=== PATIENT | male | born 1975 | race Caucasian/White ===

== ENCOUNTER 2020-04-15 14:00 | Observation (INO) | payer BC ==
[~2020-04-15] VITALS: Ht 192 cm; Wt 192.2 kg
[~2020-04-15 14:00] MED LIST: HCT25T PO; HYDR-3583 PO; METF-380 PO; TRIA1CAP PO
--- NOTE | 2020-04-15 15:19 | Pulmonary Consultation ---
History of Present Illness History of Present Illness Date Seen by Provider: Apr 15, 2020 Date of Admission History of Present Illness 44yo directly admitted from Dr. Booth's office secondary to worsening SOB. COVID testing is pending. Allergies and Home Medications Allergies Coded Allergies: No Known Drug Allergies (Verified , 05/14/08) Home Medications Albuterol Sulfate 1 Puff Puff, 2 PUFF IH Q4H PRN for SHORTNESS OF BREATH, (Reported) 1 PUFF = 90 MCG Amlodipine Besylate 5 Mg Tablet, 5 MG PO DAILY, (Reported) Desvenlafaxine Succinate 100 Mg Tab.er.24h, 100 MG PO DAILY, (Reported) Diazepam 5 Mg Tablet, 5 MG PO DAILY PRN for ANXIETY, (Reported) Doxylamine Succinate 25 Mg Tablet, 25 MG PO HS, (Reported) Famotidine 10 Mg Tablet, 10 MG PO DAILY PRN for HEARTBURN, (Reported) Lactobacillus Combination No.4 1 Each Capsule, 1 EACH PO DAILY, (Reported) Metoprolol Succinate 25 Mg Tab.er.24h, 25 MG PO DAILY, (Reported) Multivit-Min/Folic/Vit K/Lycop 1 Each Tablet, 1 EACH PO DAILY, (Reported) Olmesartan Medoxomil 20 Mg Tablet, 20 MG PO DAILY, (Reported) Propranolol HCl 10 Mg Tablet, 10 MG PO DAILY PRN for ANXIETY, (Reported) Simethicone 125 Mg Capsule, 125 MG PO DAILY, (Reported) Triamterene/Hydrochlorothiazid 1 Each Capsule, 1 EACH PO DAILY, (Reported) Past Gehrhia-Rbqeot-Mmifoy Hx Patient Social History Smoking Status: Light Tobacco Smoker Have you traveled recently?: No Substance type: Marijuana Alcohol Use?: Yes Past Medical History Reproductive Disorders: No Sepsis Event Evaluation Height, Weight, BMI Height: '" Weight: lbs. oz. kg; 47.74 BMI Method: Exam Exam Height & Weight Height: '" Weight: lbs. oz. kg; 47.74 BMI Method: Assessment/Plan Assessment/Plan SOB -ABG -CXR -Labs pending COVID pending -Check Influenza Acute dehydration with metabolic lactic acidosis -IVF Acute renal failure -IVF YAN WEN DO Apr 15, 2020 15:19
[2020-04-15 15:24] LABS: BASOPHILS % (AUTO) 1 % (0-10); EOSINOPHILS % (AUTO) 1 % (0-10); HEMATOCRIT 39 % (40-54); LYMPHOCYTES # (AUTO) 1.1 10^3/uL (1.0-4.0); LYMPHOCYTES % (AUTO) 29 % (12-44); MEAN CORPUSCULAR HEMOGLOBIN 37 pg (25-34); MEAN CORPUSCULAR HGB CONC 36 g/dL (32-36); MEAN CORPUSCULAR VOLUME 103 fL (80-99); MEAN PLATELET VOLUME 9.5 fL (9.0-12.2); MONOCYTES # (AUTO) 0.4 10^3/uL (0.0-1.0); MONOCYTES % (AUTO) 11 % (0-12); NEUTROPHILS # (AUTO) 2.1 10^3/uL (1.8-7.8); NEUTROPHILS % (AUTO) 58 % (42-75); PLATELET COUNT 128 10^3/uL (130-400); WHITE BLOOD COUNT 3.7 10^3/uL (4.3-11.0)
--- NOTE | 2020-04-15 15:24 | Diagnostic Imaging Report ---
INDICATION: Dyspnea. Frontal chest obtained at 03:18 p.m. Heart and mediastinal silhouette are normal in appearance. The lungs are clear. There is no pneumothorax or pleural fluid. IMPRESSION: Negative chest. Dictated by: Dictated on workstation # [id number]
[2020-04-15 15:34] LABS: FIBRIN DEGRADATION PRODUCTS 0.63 UG/ML (0.00-0.49); PROTHROMBIN TIME PATIENT 13.6 SEC (12.2-14.7)
[2020-04-15 15:42] LABS: ALBUMIN 4.2 GM/DL (3.2-4.5); CHLORIDE 98 MMOL/L (98-107); SODIUM 136 MMOL/L (135-145)
[2020-04-15 15:43] LABS: CALCIUM 8.3 MG/DL (8.5-10.1)
[2020-04-15 15:44] LABS: GLUCOSE 97 MG/DL (70-105)
[2020-04-15 15:45] LABS: TOTAL PROTEIN 7.8 GM/DL (6.4-8.2)
[2020-04-15] MEDS ORDERED: AZITHROMYCIN INJECTION 500 MG in NS (IVPB) 250 ML IV ONE (15:45)
[2020-04-15] MEDS ORDERED: cefTRIAXone FOR IV USE 1,000 MG in WATER (STERILE) FOR INJECTION 10 ML IV SCH (15:45)
[2020-04-15 15:46] LABS: BILIRUBIN,TOTAL 0.7 MG/DL (0.1-1.0); CARBON DIOXIDE 22 MMOL/L (21-32)
[2020-04-15 15:48] LABS: ALKALINE PHOSPHATASE 52 U/L (40-136); CREATININE SERUM 1.58 MG/DL (0.60-1.30); GFR ESTIMATED 48
[2020-04-15 15:49] LABS: BUN/CREATININE RATIO 16
[2020-04-15 15:51] LABS: ALANINE AMINOTRANSFERASE 85 U/L (0-55)
[2020-04-15 15:59] LABS: ABG BASE EXCESS -2.8 MMOL/L (-2.5-2.5); ABG OXYGEN SATURATION 99 % (94-100); ABG PCO2 29 MMHG (35-45); ABG PH 7.47 (7.37-7.43); ABG PO2 124 MMHG (79-93); ABG TCO2 21.3 MMOL/L (21.0-31.0)
[2020-04-15] MEDS ORDERED: LACTATED RINGERS 1,000 ML IV SCH ×3 (16:00→16:15)
[2020-04-15 16:03] LABS: ALLENS TEST YES-POS; INSPIRED O2 RA; VENTILATOR NO
[2020-04-15] MEDS ORDERED: DIAZ5TAB49 PO (16:05)
[2020-04-15] MEDS ORDERED: MTP25TSR PO (16:05)
[2020-04-15] MEDS ORDERED: PROP10TA8 PO (16:05)
[2020-04-15] MEDS ORDERED: FAMO10TA43 PO (16:05)
[2020-04-15] MEDS ORDERED: SIME125C PO (16:05)
[2020-04-15] MEDS ORDERED: OLME20TA24 PO (16:05)
[2020-04-15] MEDS ORDERED: TRIA1CAP4 PO (16:05)
[2020-04-15] MEDS ORDERED: DOXY25TA35 PO (16:05)
[2020-04-15] MEDS ORDERED: DESV100T16 PO (16:05)
[2020-04-15] MEDS ORDERED: AMLO-250 PO (16:05)
[2020-04-15] MEDS ORDERED: RT-ALBUINH IH (16:05)
[2020-04-15] MEDS ORDERED: MULT-1102 PO (16:05)
--- NOTE | 2020-04-15 16:07 | NUR ---
I SPOKE WITH THE PATIENT ON THE ROOM PHONE AND WENT THROUGH THE EXTERNAL MED HISTORY TO COMPLETE THIS MED REC. OTC: PEPCID GAS X UNISOM SLEEP AID MEN'S DAILY VITAMIN PROBIOTIC
[2020-04-15] MEDS ORDERED: LACT1CAP74 PO (16:09)
[2020-04-15] MEDS ORDERED: hydrALAZINE (APESOLINE) 20 MG/ML VIAL IV SCH (16:30)
[2020-04-15 16:40] LABS: MAGNESIUM 1.6 MG/DL (1.6-2.4)
[2020-04-15] MEDS: ENOXAPARIN 40 MG/0.4 ML (LOVENOX) SYR SC SCH (16:44)
[2020-04-15 16:51] LABS: BILIRUBIN,URINE NEGATIVE (NEGATIVE); CLARITY,URINE CLEAR; COLOR,URINE YELLOW; GLUCOSE, URINE (UA) NEGATIVE (NEGATIVE); KETONES,URINE NEGATIVE (NEGATIVE); LEUKOCYTE ESTERASE ,URINE NEGATIVE (NEGATIVE); NITRITE,URINE NEGATIVE (NEGATIVE); PROTEIN,URINE NEGATIVE (NEGATIVE)
[2020-04-15 16:58] LABS: BACTERIA,URINE NEGATIVE /HPF; WBC,URINE 0-2 /HPF
[2020-04-15] MEDS ORDERED: hydrALAZINE (APESOLINE) 20 MG/ML VIAL IV PRN (17:00)
[2020-04-15 17:08] LABS: BENZODIAZEPINES SCREEN URINE POSITIVE (NEGATIVE)
[2020-04-15 17:09] LABS: AMPHETAMINE SCREEN, URINE NEGATIVE (NEGATIVE); BARBITURATE SCREEN URINE NEGATIVE (NEGATIVE); CANNABINOID SCREEN, URINE POSITIVE (NEGATIVE); COCAINE SCREEN URINE NEGATIVE (NEGATIVE); METHADONE STAT NEGATIVE (NEGATIVE); METHAMPHETAMINE SCREEN URINE S NEGATIVE (NEGATIVE); OPIATE SCREEN URINE NEGATIVE (NEGATIVE); OXYCODONE STAT NEGATIVE (NEGATIVE); PROPOXYPHENE STAT NEGATIVE (NEGATIVE); TRICYCLIC ANTIDEPRESSANTS SCRE NEGATIVE (NEGATIVE)
[2020-04-15] MEDS ORDERED: HYDROcodone/APAP 5 MG/325 MG (LORTAB) TAB PO PRN (20:45)
[2020-04-15] MEDS ORDERED: MELATONIN 3 MG TABLET PO PRN (20:45)
[2020-04-15] MEDS ORDERED: RT-ALBUTEROL SULF 2.5 MG/3 ML PRE-MIX VIAL IH PRN (20:45)
[2020-04-15] MEDS ORDERED: ALPRAZolam 0.25 MG (XANAX) TAB PO PRN (20:45)
[2020-04-15] MEDS ORDERED: DOCUSATE SODIUM 100 MG (COLACE) CAP PO PRN (20:45)
[2020-04-15] MEDS ORDERED: ONDANSETRON 4 MG/2 ML (SDV) Z0FRAN IVP PRN (20:45)
[2020-04-15] MEDS ORDERED: DIAZEPAM 5 MG (VALIUM) TABLET PO PRN (20:45)
[2020-04-15] MEDS ORDERED: CALCIUM CARBONATE 500 MG (TUMS) TAB.CHEW PO PRN (20:45)
[2020-04-15] MEDS ORDERED: diphenhydrAMINE 25 MG TAB (BENADRYL) PO PRN (20:45)
[2020-04-15] MEDS ORDERED: ACETAMINOPHEN 500 MG TAB (TYLENOL) PO PRN (20:45)
[2020-04-15] MEDS ORDERED: LOPERAMIDE 2 MG (IMODIUM) TABLET PO PRN (20:45)
[2020-04-15] MEDS ORDERED: meTOprolol TARTRATE 25 MG (LOPRESSOR) TABLET PO SCH (21:00)
[2020-04-15] MEDS ORDERED: DOXYLAMINE SUCCINATE 25 MG PO SCH (21:00)
[2020-04-15] MEDS: SENNA W/DOCUSATE (SENOKOT S) TABLET PO SCH (21:42)
[2020-04-15 21:56] LABS: HEPATITIS C ANTIBODY C Non-Reactive (Non-Reactive)
[2020-04-15] MEDS ORDERED: PROPRANOLOL 20 MG (INDERAL) TABLET PO PRN (22:00)
[2020-04-15] MEDS ORDERED: FAMOTIDINE 20 MG (PEPCID) TABLET PO PRN (22:00)
[2020-04-15] MEDS: LACTATED RINGERS 1,000 ML IV SCH ×2 (22:46→22:47)
--- NOTE | 2020-04-15 23:06 | NUR ---
clarification order with Dr Booth on benzo's per pharmacy doesnt feel he needs both diazepam and alprazolam. per Dr Booth dc diazepam. TORBV
[2020-04-15] MEDS: guaiFENesin/DM (ROBITUSSIN DM) 10 ML UDC PO PRN (23:51)
[2020-04-16] MEDS: ENOXAPARIN 40 MG/0.4 ML (LOVENOX) SYR SC SCH (04:21)
[2020-04-16 04:23] LABS: BASOPHILS % (AUTO) 1 % (0-10); EOSINOPHILS % (AUTO) 2 % (0-10); HEMATOCRIT 37 % (40-54); LYMPHOCYTES % (AUTO) 43 % (12-44); MEAN CORPUSCULAR HEMOGLOBIN 36 pg (25-34); MEAN CORPUSCULAR HGB CONC 35 g/dL (32-36); MEAN CORPUSCULAR VOLUME 103 fL (80-99); MEAN PLATELET VOLUME 9.9 fL (9.0-12.2); MONOCYTES # (AUTO) 0.2 10^3/uL (0.0-1.0); MONOCYTES % (AUTO) 8 % (0-12); NEUTROPHILS # (AUTO) 1.1 10^3/uL (1.8-7.8); NEUTROPHILS % (AUTO) 45 % (42-75); PLATELET COUNT 98 10^3/uL (130-400); WHITE BLOOD COUNT 2.3 10^3/uL (4.3-11.0)
[2020-04-16 04:33] LABS: ALBUMIN 3.9 GM/DL (3.2-4.5); POTASSIUM 3.8 MMOL/L (3.6-5.0)
[2020-04-16 04:34] LABS: CALCIUM 8.2 MG/DL (8.5-10.1)
[2020-04-16 04:35] LABS: TOTAL PROTEIN 7.3 GM/DL (6.4-8.2)
[2020-04-16 04:37] LABS: BILIRUBIN,TOTAL 0.8 MG/DL (0.1-1.0)
[2020-04-16 04:39] LABS: CREATININE SERUM 1.34 MG/DL (0.60-1.30)
[2020-04-16] MEDS: LACTATED RINGERS 1,000 ML IV SCH (05:11)
[2020-04-16] MEDS: guaiFENesin/DM (ROBITUSSIN DM) 10 ML UDC PO PRN (05:52)
[2020-04-16] MEDS: RT-ALBUTEROL/IPRATROPIUM 3 ML (DUONEB) VIAL INH SCH ×3 (06:32→13:46)
[2020-04-16] MEDS ORDERED: VENlafaxine XR 75 MG (EFFEXOR XR) CAP PO SCH (07:00)
[2020-04-16] MEDS ORDERED: MULTIVIT W/MINERALS TAB (THERAGRAN M) PO SCH (07:00)
[2020-04-16] MEDS ORDERED: ADVAIR HFA 115/21 MCG INHALER 8 GM IH SCH (08:00)
[2020-04-16] MEDS ORDERED: LACTOBACILLUS ACIDOPHILUS (PROBIOTIC) CAPSULE PO SCH (09:00)
[2020-04-16] MEDS ORDERED: AZITHROMYCIN INJECTION 250 MG in NS (IVPB) 250 ML IV SCH (09:00)
[2020-04-16] MEDS ORDERED: amLODIPine 5 MG (NORVASC) TAB PO SCH ×2 (09:00)
[2020-04-16] MEDS ORDERED: meTOprolol TARTRATE 25 MG (LOPRESSOR) TABLET PO SCH (09:00)
[2020-04-16] MEDS ORDERED: SIMETHICONE 80 MG (MYLICON) CHEW PO SCH (09:00)
--- NOTE | 2020-04-16 09:03 | NUR ---
Received dietary consult for MST score. Given current PO intake, pt is not at risk for malnutrition at this time. Melvin Elise, MS RD LD
--- NOTE | 2020-04-16 09:08 | Consultation-Cardiology ---
HPI-Cardiology Cardiology Consultation Date of Consultation 04/16/20 Date of Admission Time Seen by Provider: 10:38 Indication: shortness of breath HPI 44 years old gentleman with morbid obesity, admitted directly from Dr. Booth's office for generalized weakness and increasing shortness of breath. Patient has lost over 100 pound in the past but recently has gained about 60 pounds. He has been having increasing dyspnea with minimal exertion, generalized fatigue and loss of energy. Denied any chest pain. No palpitation. No syncope Home Medications & Allergies Allergies: Coded Allergies: No Known Drug Allergies (Verified , 05/14/08) Home Medication List Reviewed: Yes JLC-Udfydw-Ndefph Hx Patient Social History Smoking Status: Light Tobacco Smoker Have you traveled recently?: No Alcohol Use?: Yes Substance type: Marijuana Past Medical History discussed below Review of Systems-General Review of Systems Constitutional: no symptoms reported, see HPI, malaise, weakness EENTM: see HPI, no symptoms reported Respiratory: see HPI, dyspnea on exertion, orthopnea, short of breath Cardiovascular: see HPI Gastrointestinal: no symptoms reported, see HPI Genitourinary: no symptoms reported, see HPI Musculoskeletal: no symptoms reported, see HPI Skin: no symptoms reported, see HPI Psychiatric/Neurological: No Symptoms Reported, See HPI Reviewed Test Results Reviewed Test Results Lab Laboratory Tests Test 04/15/20 15:00 04/15/20 15:15 04/15/20 15:35 04/15/20 16:15 Range/Units White Blood Count 3.7 L 4.3-11.0 10^3/uL Red Blood Count 3.84 L 4.30-5.52 10^6/uL Hemoglobin 14.0 13.3-17.7 g/dL Hematocrit 39 L 40-54 % Mean Corpuscular Volume 103 H 80-99 fL Mean Corpuscular Hemoglobin 37 H 25-34 pg Mean Corpuscular Hemoglobin Concent 36 32-36 g/dL Red Cell Distribution Width 14.6 H 10.0-14.5 % Platelet Count 128 L 130-400 10^3/uL Mean Platelet Volume 9.5 9.0-12.2 fL Immature Granulocyte % (Auto) 1 % Neutrophils (%) (Auto) 58 42-75 % Lymphocytes (%) (Auto) 29 12-44 % Monocytes (%) (Auto) 11 0-12 % Eosinophils (%) (Auto) 1 0-10 % Basophils (%) (Auto) 1 0-10 % Neutrophils # (Auto) 2.1 1.8-7.8 10^3/uL Lymphocytes # (Auto) 1.1 1.0-4.0 10^3/uL Monocytes # (Auto) 0.4 0.0-1.0 10^3/uL Eosinophils # (Auto) 0.0 0.0-0.3 10^3/uL Basophils # (Auto) 0.0 0.0-0.1 10^3/uL Immature Granulocyte # (Auto) 0.0 0.0-0.1 10^3/uL Prothrombin Time 13.6 12.2-14.7 SEC INR Comment 1.0 0.8-1.4 Activated Partial Thromboplast Time 26 24-35 SEC D-Dimer 0.63 H 0.00-0.49 UG/ML Sodium Level 136 135-145 MMOL/L Potassium Level 4.0 3.6-5.0 MMOL/L Chloride Level 98 98-107 MMOL/L Carbon Dioxide Level 22 21-32 MMOL/L Anion Gap 16 H 5-14 MMOL/L Blood Urea Nitrogen 25 H 7-18 MG/DL Creatinine 1.58 H 0.60-1.30 MG/DL Estimat Glomerular Filtration Rate 48 BUN/Creatinine Ratio 16 Glucose Level 97 70-105 MG/DL Calcium Level 8.3 L 8.5-10.1 MG/DL Corrected Calcium 8.1 L 8.5-10.1 MG/DL Phosphorus Level 3.0 2.3-4.7 MG/DL Magnesium Level 1.6 1.6-2.4 MG/DL Total Bilirubin 0.7 0.1-1.0 MG/DL Aspartate Amino Transf (AST/SGOT) 111 H 5-34 U/L Alanine Aminotransferase (ALT/SGPT) 85 H 0-55 U/L Alkaline Phosphatase 52 40-136 U/L Troponin I < 0.028 <0.028 NG/ML B-Type Natriuretic Peptide < 10.0 <100.0 PG/ML Total Protein 7.8 6.4-8.2 GM/DL Albumin 4.2 3.2-4.5 GM/DL Procalcitonin 0.06 <0.10 NG/ML Coronavirus (COVID-19)(PCR) Negative Negative Coronavirus 2018 ([facility]) Negative Negative Blood Gas Puncture Site R RAD Blood Gas Patient Temperature 37.0 Arterial Blood pH 7.47 H 7.37-7.43 Arterial Blood Partial Pressure CO2 29 L 35-45 MMHG Arterial Blood Partial Pressure O2 124 H 79-93 MMHG Arterial Blood HCO3 20 L 23-27 MMOL/L Arterial Blood Total CO2 21.3 21.0-31.0 MMOL/L Arterial Blood Oxygen Saturation 99 94-100 % Arterial Blood Base Excess -2.8 L -2.5-2.5 MMOL/L Facundo Test YES-POS Blood Gas Ventilator Setting NO Blood Gas Inspired Oxygen RA Lactic Acid Level 2.72 *H 0.50-2.00 MMOL/L Urine Color YELLOW Urine Clarity CLEAR Urine pH 5.0 5-9 Urine Specific [place] >=1.030 1.016-1.022 Urine Protein NEGATIVE NEGATIVE Urine Glucose (UA) NEGATIVE NEGATIVE Urine Ketones NEGATIVE NEGATIVE Urine Nitrite NEGATIVE NEGATIVE Urine Bilirubin NEGATIVE NEGATIVE Urine Urobilinogen 0.2 < = 1.0 MG/DL Urine Leukocyte Esterase NEGATIVE NEGATIVE Urine RBC (Auto) NEGATIVE NEGATIVE Urine RBC NONE /HPF Urine WBC 0-2 /HPF Urine Squamous Epithelial Cells NONE /HPF Urine Crystals NONE /LPF Urine Bacteria NEGATIVE /HPF Urine Casts NONE /LPF Urine Mucus NEGATIVE /LPF Urine Culture Indicated NO Urine Opiates Screen NEGATIVE NEGATIVE Urine Oxycodone Screen NEGATIVE NEGATIVE Urine Methadone Screen NEGATIVE NEGATIVE Urine Propoxyphene Screen NEGATIVE NEGATIVE Urine Barbiturates Screen NEGATIVE NEGATIVE Ur Tricyclic Antidepressants Screen NEGATIVE NEGATIVE Urine Phencyclidine Screen NEGATIVE NEGATIVE Urine Amphetamines Screen NEGATIVE NEGATIVE Urine Methamphetamines Screen NEGATIVE NEGATIVE Urine Benzodiazepines Screen POSITIVE H NEGATIVE Urine Cocaine Screen NEGATIVE NEGATIVE Urine Cannabinoids Screen POSITIVE H NEGATIVE Test 04/15/20 16:16 04/15/20 21:25 04/16/20 04:07 04/16/20 04:57 Range/Units Hepatitis A IgM Antibody Non-Reactive Non-Reactive Hepatitis B Surface Antigen Non-Reactive Non-Reactive Hepatitis B Core IgM Antibody Non-Reactive Non-Reactive Hepatitis C Antibody Non-Reactive Non-Reactive Lactic Acid Level 1.80 0.50-2.00 MMOL/L White Blood Count 2.3 L 4.3-11.0 10^3/uL Red Blood Count 3.59 L 4.30-5.52 10^6/uL Hemoglobin 13.0 L 13.3-17.7 g/dL Hematocrit 37 L 40-54 % Mean Corpuscular Volume 103 H 80-99 fL Mean Corpuscular Hemoglobin 36 H 25-34 pg Mean Corpuscular Hemoglobin Concent 35 32-36 g/dL Red Cell Distribution Width 14.6 H 10.0-14.5 % Platelet Count 98 L 130-400 10^3/uL Mean Platelet Volume 9.9 9.0-12.2 fL Immature Granulocyte % (Auto) 1 % Neutrophils (%) (Auto) 45 42-75 % Lymphocytes (%) (Auto) 43 12-44 % Monocytes (%) (Auto) 8 0-12 % Eosinophils (%) (Auto) 2 0-10 % Basophils (%) (Auto) 1 0-10 % Neutrophils # (Auto) 1.1 L 1.8-7.8 10^3/uL Lymphocytes # (Auto) 1.0 1.0-4.0 10^3/uL Monocytes # (Auto) 0.2 0.0-1.0 10^3/uL Eosinophils # (Auto) 0.0 0.0-0.3 10^3/uL Basophils # (Auto) 0.0 0.0-0.1 10^3/uL Immature Granulocyte # (Auto) 0.0 0.0-0.1 10^3/uL Sodium Level 133 L 135-145 MMOL/L Potassium Level 3.8 3.6-5.0 MMOL/L Chloride Level 96 L 98-107 MMOL/L Carbon Dioxide Level 23 21-32 MMOL/L Anion Gap 14 5-14 MMOL/L Blood Urea Nitrogen 20 H 7-18 MG/DL Creatinine 1.34 H 0.60-1.30 MG/DL Estimat Glomerular Filtration Rate 58 BUN/Creatinine Ratio 15 Glucose Level 96 70-105 MG/DL Calcium Level 8.2 L 8.5-10.1 MG/DL Corrected Calcium 8.3 L 8.5-10.1 MG/DL Total Bilirubin 0.8 0.1-1.0 MG/DL Aspartate Amino Transf (AST/SGOT) 104 H 5-34 U/L Alanine Aminotransferase (ALT/SGPT) 76 H 0-55 U/L Alkaline Phosphatase 50 40-136 U/L Total Protein 7.3 6.4-8.2 GM/DL Albumin 3.9 3.2-4.5 GM/DL Test 04/16/20 05:58 Range/Units Ammonia 28 11-32 UMOL/L Physical Exam Physical Exam Vital Signs Vital Signs - First Documented 04/15/20 04/15/20 04/15/20 15:01 15:27 16:00 Temp 37.0 Pulse 124 Resp 13 B/P (MAP) 145/109 (121) Pulse Ox 97 O2 Delivery Room Air Capillary Refill : Height, Weight, BMI Height: '" Weight: lbs. oz. kg; 47.74 BMI Method: General Appearance: No Apparent Distress, WD/WN Eyes: Bilateral Eye Normal Inspection, Bilateral Eye PERRL, Bilateral Eye EOMI HEENT: PERRL/EOMI, TMs Normal, Normal ENT Inspection, Pharynx Normal, Moist Mucous Membranes Neck: Full Range of Motion, Normal Inspection, Non Tender, Supple, Carotid Bruit Respiratory: Chest Non Tender, Normal Breath Sounds, No Accessory Muscle Use, No Respiratory Distress Cardiovascular: Regular Rate, Rhythm, No Edema, No Gallop, No JVD, No Murmur, Normal Peripheral Pulses Gastrointestinal: Normal Bowel Sounds, No Organomegaly, No Pulsatile Mass, Non Tender, Soft Back: Normal Inspection, No CVA Tenderness, No Vertebral Tenderness Extremity: Normal Capillary Refill, Normal Inspection, Normal Range of Motion, Non Tender, No Calf Tenderness, No Pedal Edema Neurologic/Psychiatric: Alert, Oriented x3, No Motor/Sensory Deficits, Normal Mood/Affect Skin: Normal Color, Warm/Dry Lymphatic: No Adenopathy A/P-Cardiology Admission Diagnosis Shortness of breath Acute renal failure Elevated liver enzymes Morbid obesity Assessment/Plan shortness of breath, worsening recently, probably due to morbid obesity with si gnificant weight gain over 60 pounds recently. We had a long discussion about starting exercise program and weight loss. Echocardiogram did not show any acute abnormality. Recommend evaluating stress test which can be done as an outpatient. Morbid obesity, BMI 52. Discussed weight loss and exercise. Dehydration with acute renal failure, received IV fluid, monitor renal function Elevated liver enzymes, probably fatty infiltrate. Recommending diet, I will evaluate lipid profile. GENNA CAIN MD Apr 16, 2020 09:08
[2020-04-16] MEDS: SENNA W/DOCUSATE (SENOKOT S) TABLET PO SCH (09:19)
--- NOTE | 2020-04-16 09:34 | History & Physical ---
History of Present Illness HPI/Chief Complaint CC: Dyspnea HPI: This is a 44yoWM clinic patient of mine with h/o HTN and obesity s/p gastric bypass who presented to the [facility] at [facility] as a direct admit due to worsened dyspnea and overall declined status. Patient was admitted placed on IVF and abx initiated for empiric treatment of URI. Dr Santos and Dr Matias consulted. Recently had a COVID test which was negative. Rapid and PCR COVID test was negative since admit. CXR and labs reviewed and appreciated all consultants' help. Source: patient Exam Limitations: no limitations Date Seen 04/16/20 Time Seen by a Provider: 09:30 Attending Physician Marilyn Booth DO PCP Marilyn Booth DO Referring Physician Date of Admission Apr 15, 2020 at 14:00 Home Medications & Allergies Home Medications Reviewed patient Home Medication Reconciliation performed by pharmacy medication reconciliations auto technician and/or nursing. Patients Allergies have been reviewed. Allergies Allergies Coded Allergies No Known Drug Allergies (Verified05/14/08) Past Afqdxhp-Cjyhll-Xiwrij Hx Past Med/Social Hx: Reviewed Nursing Past Med/Soc Hx, Reviewed and Corrections made Patient Social History Marrital Status: Employed/Student: employed Alcohol Use: Denies Use Recreational Drug Use: Yes Drug of Choice: THC Smoking Status: Never a Smoker Past Medical History Surgeries: Abdominal Cardiac: High Cholesterol, Hypertension Reproductive: No Psychosocial: Anxiety, Depression Review of Systems Constitutional: see HPI Respiratory: cough, dyspnea on exertion Physical Exam Physical Exam Vital Signs Vital Signs - First Documented 04/15/20 04/15/20 04/15/20 15:01 15:27 16:00 Temp 37.0 Pulse 124 Resp 13 B/P (MAP) 145/109 (121) Pulse Ox 97 O2 Delivery Room Air Capillary Refill : Height, Weight, BMI Height: '" Weight: lbs. oz. kg; 47.74 BMI Method: General Appearance: WD/WN, Anxious, Chronically ill, Mild Distress Eyes: Bilateral Eye Normal Inspection, Bilateral Eye PERRL HEENT: PERRL/EOMI, Normal ENT Inspection, Pharynx Normal Neck: Full Range of Motion, Normal Inspection, Non Tender, Supple, Carotid Bruit Respiratory: Chest Non Tender, Lungs Clear, Normal Breath Sounds, No Accessory Muscle Use, No Respiratory Distress, Decreased Breath Sounds Cardiovascular: Regular Rate, Rhythm, No Edema, No Gallop, No JVD, No Murmur, Normal Peripheral Pulses Gastrointestinal: Normal Bowel Sounds, No Organomegaly, No Pulsatile Mass, Non Tender, Soft Back: Normal Inspection, No CVA Tenderness, No Vertebral Tenderness Extremity: Normal Capillary Refill, Normal Inspection, Normal Range of Motion, Non Tender, No Calf Tenderness, No Pedal Edema Neurologic/Psychiatric: Alert, Oriented x3, No Motor/Sensory Deficits, Normal Mood/Affect Skin: Normal Color, Warm/Dry Lymphatic: No Adenopathy Results Results/Procedures Labs Laboratory Tests 04/15/20 15:00 04/16/20 04:07 Patient resulted labs reviewed. Assessment/Plan Admission Diagnosis Assessment: Dyspnea Fevers Hypoxia Elevated LA Obesity with recent weight gain HTN HLP ANxiety Depression THC use Plan: O2 CXR Labs IVF Hold ARB Admission Status: Observation Diagnosis/Problems Diagnosis/Problems (1) Dyspnea MARILYN BOOTH DO Apr 16, 2020 09:34
--- NOTE | 2020-04-16 10:12 | Diagnostic Imaging Report ---
INDICATION: Abnormal liver function tests TECHNIQUE: Multiple grayscale sonographic images were obtained of the right upper quadrant of the abdomen. CORRELATION STUDY: None FINDINGS: LIVER: There is diffusely increased echotexture within the visualized portions of the liver. Overall assessment is somewhat limited. Liver is enlarged at 24 cm. There is normal, hepatopedal direction of flow within the main portal vein. GALLBLADDER: The gallbladder demonstrates no definitive shadowing gallstones. No abnormal gallbladder wall thickening or pericholecystic fluid. COMMON BILE DUCT: Obscured. No definitive overt bile duct dilatation. PANCREAS: Obscured by overlying bowel gas. AORTA/IVC: Obscured. RIGHT KIDNEY: Approximately 12.9 x 5.4 x 6.0 cm. No hydronephrosis. OTHER: None. IMPRESSION: 1. Overall fairly limited right upper quadrant abdominal ultrasound evaluation. 2. Liver does appear to be enlarged likely component of underlying hepatic steatosis. Dictated by: Dictated on workstation # [id number]
--- NOTE | 2020-04-16 10:39 | Pulmonary Consultation ---
History of Present Illness History of Present Illness Date Seen by Provider: Apr 16, 2020 Date of Admission History of Present Illness 44yo directly admitted from Dr. Booth's office secondary to worsening SOB. COVID testing is pending. Allergies and Home Medications Allergies Coded Allergies: No Known Drug Allergies (Verified , 05/14/08) Home Medications Albuterol Sulfate 1 Puff Puff, 2 PUFF IH Q4H PRN for SHORTNESS OF BREATH, (Reported) 1 PUFF = 90 MCG Amlodipine Besylate 5 Mg Tablet, 5 MG PO DAILY, (Reported) Desvenlafaxine Succinate 100 Mg Tab.er.24h, 100 MG PO DAILY, (Reported) Diazepam 5 Mg Tablet, 5 MG PO DAILY PRN for ANXIETY, (Reported) Doxylamine Succinate 25 Mg Tablet, 25 MG PO HS, (Reported) Famotidine 10 Mg Tablet, 10 MG PO DAILY PRN for HEARTBURN, (Reported) Lactobacillus Combination No.4 1 Each Capsule, 1 EACH PO DAILY, (Reported) Metoprolol Succinate 25 Mg Tab.er.24h, 25 MG PO DAILY, (Reported) Multivit-Min/Folic/Vit K/Lycop 1 Each Tablet, 1 EACH PO DAILY, (Reported) Olmesartan Medoxomil 20 Mg Tablet, 20 MG PO DAILY, (Reported) Propranolol HCl 10 Mg Tablet, 10 MG PO DAILY PRN for ANXIETY, (Reported) Simethicone 125 Mg Capsule, 125 MG PO DAILY, (Reported) Triamterene/Hydrochlorothiazid 1 Each Capsule, 1 EACH PO DAILY, (Reported) Past Oegsetd-Skengg-Qrtukh Hx Patient Social History Smoking Status: Light Tobacco Smoker Have you traveled recently?: No Substance type: Marijuana Alcohol Use?: Yes Past Medical History Reproductive Disorders: No Review of Systems Time Seen by Provider: 10:38 Sepsis Event Evaluation Height, Weight, BMI Height: '" Weight: lbs. oz. kg; 47.74 BMI Method: Exam Exam Vital Signs Date Time Temp Pulse Resp B/P (MAP) Pulse Ox O2 Delivery O2 Flow Rate FiO2 04/16/20 10:02 96 Room Air 04/16/20 08:00 Room Air 04/16/20 07:59 173/90 (117) 04/16/20 07:30 36.3 98 23 99 Room Air 04/16/20 07:12 104 04/16/20 06:32 98 Room Air 04/16/20 04:00 36.8 96 22 172/111 (131) 96 Room Air 04/16/20 00:56 97 04/16/20 00:00 37.1 97 16 177/112 (133) 99 Room Air 04/15/20 21:40 37.0 89 16 161/115 (130) 96 Room Air 04/15/20 21:00 97 Room Air 04/15/20 20:14 36.7 106 22 152/118 (129) 97 Room Air 04/15/20 19:00 113 04/15/20 18:11 97 Room Air 04/15/20 16:00 37.0 121 13 145/109 (121) 97 04/15/20 15:27 37.0 112 Room Air 04/15/20 15:01 124 I & O 04/16/20 06:59 Intake Total 5050 ml Output Total 300 ml Balance 4750 ml Height & Weight Height: '" Weight: lbs. oz. kg; 47.74 BMI Method: General Appearance: Anxious, Mild Distress HEENT: PERRL/EOMI, Pharynx Normal Neck: Full Range of Motion, Non Tender, Supple Respiratory: Chest Non Tender, No Accessory Muscle Use, No Respiratory Distress, Crackles, Decreased Breath Sounds Cardiovascular: Regular Rate, Rhythm, No Edema Capillary Refill: Less Than 3 Seconds Gastrointestinal: non tender, soft Extremity: Normal Capillary Refill, No Pedal Edema Neurologic/Psychiatric: Alert, Oriented x3 Skin: Normal Color, Warm/Dry Results Lab Laboratory Tests 04/15/20 15:00 04/16/20 04:07 Assessment/Plan Assessment/Plan SOB -ABG & CXR reviewed COVID negative -Check Influenza Pancytopenia -Check EBV Elevated LFTs -Hep panel is negative Acute dehydration with metabolic lactic acidosis -IVF Acute renal failure -IVF YAN WEN DO Apr 16, 2020 10:39
[2020-04-16] MEDS ORDERED: AMLO-250 PO (10:42)
[2020-04-16] MEDS ORDERED: RT-ALBUINH IH (10:42)
[2020-04-16] MEDS ORDERED: IPRA3AMP31 INH (10:42)
[2020-04-16] MEDS ORDERED: HYDR-3923 PO (10:42)
[2020-04-16] MEDS ORDERED: FLUT12AE4 IH (10:42)
[2020-04-16] MEDS ORDERED: CEFD300C3 PO (10:42)
--- NOTE | 2020-04-16 10:43 | Discharge Summary ---
Diagnosis/Chief Complaint Date of Admission Apr 15, 2020 at 14:00 Date of Discharge Discharge Date: Apr 16, 2020 Discharge Diagnosis Dyspnea Bronchitis Asthma Obesity HTN OOC FADI Discharge Summary Discharge Physical Examination Allergies: Coded Allergies: No Known Drug Allergies (Verified , 05/14/08) Vitals & I&Os Vital Signs Date Time Temp Pulse Resp B/P (MAP) Pulse Ox O2 Delivery O2 Flow Rate FiO2 04/16/20 14:15 04/16/20 13:46 97 Room Air 04/16/20 13:07 92 04/16/20 11:14 23 04/16/20 07:30 36.3 General Appearance: Alert, Oriented X3, Cooperative Respiratory: Clear to Auscultation Cardiovascular: Regular Rate Hospital Course Was the Problem List Reviewed?: Yes Short course. Admitted from clinic for dyspnea. COVID testing negative. ALl w/u revealed no critical levels and asthma bronchospasm was dx with bronchitis and EST will be done as outpatient and kidney function improved and overall he was deemed stable for DC. Labs (last 24 hrs) Laboratory Tests 04/15/20 15:00: White Blood Count 3.7L, Red Blood Count 3.84L, Hemoglobin 14.0, Hematocrit 39L, Mean Corpuscular Volume 103H, Mean Corpuscular Hemoglobin 37H, Mean Corpuscular Hemoglobin Concent 36, Red Cell Distribution Width 14.6H, Platelet Count 128L, Mean Platelet Volume 9.5, Immature Granulocyte % (Auto) 1, Neutrophils (%) (Auto) 58, Lymphocytes (%) (Auto) 29, Monocytes (%) (Auto) 11, Eosinophils (%) (Auto) 1, Basophils (%) (Auto) 1, Neutrophils # (Auto) 2.1, Lymphocytes # (Auto) 1.1, Monocytes # (Auto) 0.4, Eosinophils # (Auto) 0.0, Basophils # (Auto) 0.0, Immature Granulocyte # (Auto) 0.0, Prothrombin Time 13.6, INR Comment 1.0, Activated Partial Thromboplast Time 26, D-Dimer 0.63H, Sodium Level 136, Potas sium Level 4.0, Chloride Level 98, Carbon Dioxide Level 22, Anion Gap 16H, Blood Urea Nitrogen 25H, Creatinine 1.58H, Estimat Glomerular Filtration Rate 48, BUN/Creatinine Ratio 16, Glucose Level 97, Calcium Level 8.3L, Corrected Calcium 8.1L, Phosphorus Level 3.0, Magnesium Level 1.6, Total Bilirubin 0.7, Aspartate Amino Transf (AST/SGOT) 111H, Alanine Aminotransferase (ALT/SGPT) 85H, Alkaline Phosphatase 52, Troponin I < 0.028, B-Type Natriuretic Peptide < 10.0, Total Protein 7.8, Albumin 4.2, Procalcitonin 0.06, Coronavirus (COVID-19)(PCR) Negative, Coronavirus 2019 ([facility]) Negative 04/15/20 15:15: Blood Gas Puncture Site R RAD, Blood Gas Patient Temperature 37.0, Arterial Blood pH 7.47H, Arterial Blood Partial Pressure CO2 29L, Arterial Blood Partial Pressure O2 124H, Arterial Blood HCO3 20L, Arterial Blood Total CO2 21.3, Arterial Blood Oxygen Saturation 99, Arterial Blood Base Excess -2.8L, Facundo Test YES-POS, Blood Gas Ventilator Setting NO, Blood Gas Inspired Oxygen RA 04/15/20 15:35: Lactic Acid Level 2.72*H 04/15/20 16:15: Urine Color YELLOW, Urine Clarity CLEAR, Urine pH 5.0, Urine Specific Adel >=1.030, Urine Protein NEGATIVE, Urine Glucose (UA) NEGATIVE, Urine Ketones NEGATIVE, Urine Nitrite NEGATIVE, Urine Bilirubin NEGATIVE, Urine Urobilinogen 0.2, Urine Leukocyte Esterase NEGATIVE, Urine RBC (Auto) NEGATIVE, Urine RBC NONE, Urine WBC 0-2, Urine Squamous Epithelial Cells NONE, Urine Crystals NONE, Urine Bacteria NEGATIVE, Urine Casts NONE, Urine Mucus NEGATIVE, Urine Culture Indicated NO, Urine Opiates Screen NEGATIVE, Urine Oxycodone Screen NEGATIVE, Urine Methadone Screen NEGATIVE, Urine Propoxyphene Screen NEGATIVE, Urine Barbiturates Screen NEGATIVE, Ur Tricyclic Antidepressants Screen NEGATIVE, Urine Phencyclidine Screen NEGATIVE, Urine Amphetamines Screen NEGATIVE, Urine Methamphetamines Screen NEGATIVE, Urine Benzodiazepines Screen POSITIVEH, Urine Cocaine Screen NEGATIVE, Urine Cannabinoids Screen POSITIVEH, Urine Legionella pneumophilia Ag PositiveH, Streptococcus pneumoniae Antigen Negative 04/15/20 16:16: Hepatitis A IgM Antibody Non-Reactive, Hepatitis B Surface Antigen Non-Reactive, Hepatitis B Core IgM Antibody Non-Reactive, Hepatitis C Antibody Non-Reactive 04/15/20 21:25: Lactic Acid Level 1.80 04/16/20 04:07: White Blood Count 2.3L, Red Blood Count 3.59L, Hemoglobin 13.0L, Hematocrit 37L, Mean Corpuscular Volume 103H, Mean Corpuscular Hemoglobin 36H, Mean Corpuscular Hemoglobin Concent 35, Red Cell Distribution Width 14.6H, Platelet Count 98L, Mean Platelet Volume 9.9, Immature Granulocyte % (Auto) 1, Neutrophils (%) (Auto) 45, Lymphocytes (%) (Auto) 43, Monocytes (%) (Auto) 8, Eosinophils (%) (Auto) 2, Basophils (%) (Auto) 1, Neutrophils # (Auto) 1.1L, Lymphocytes # (Auto) 1.0, Monocytes # (Auto) 0.2, Eosinophils # (Auto) 0.0, Basophils # (Auto) 0.0, Immature Granulocyte # (Auto) 0.0, Sodium Level 133L, Potassium Level 3.8, Chloride Level 96L, Carbon Dioxide Level 23, Anion Gap 14, Blood Urea Nitrogen 20H, Creatinine 1.34H, Estimat Glomerular Filtration Rate 58, BUN/Creatinine Ratio 15, Glucose Level 96, Calcium Level 8.2L, Corrected Calcium 8.3L, Total Bilirubin 0.8, Aspartate Amino Transf (AST/SGOT) 104H, Alanine Aminotransferase (ALT/SGPT) 76H, Alkaline Phosphatase 50, Total Protein 7.3, Albumin 3.9, Monoscreen NEGATIVE 04/16/20 04:57: Triglycerides Level 290H, Cholesterol Level 201H, LDL Cholesterol Direct 107, VLDL Cholesterol 58H, HDL Cholesterol 69H 04/16/20 05:58: Ammonia 28 Microbiology 04/15/20 Blood Culture - Preliminary, Resulted No growth Pending Labs Microbiology Date/Time Source Procedure Growth Status 04/15/20 15:35 Peripheral Lt Hand Blood Culture - Preliminary No growth Resulted 04/15/20 15:30 Peripheral Rt Ac Blood Culture - Preliminary No growth Resulted Laboratory Tests 04/15/20 15:00: White Blood Count 3.7, Red Blood Count 3.84, Hemoglobin 14.0, Hematocrit 39, Mean Corpuscular Volume 103, Mean Corpuscular Hemoglobin 37, Mean Corpuscular Hemoglobin Concent 36, Red Cell Distribution Width 14.6, Platelet Count 128, Mean Platelet Volume 9.5, Immature Granulocyte % (Auto) 1, Neutrophils (%) (Auto) 58, Lymphocytes (%) (Auto) 29, Monocytes (%) (Auto) 11, Eosinophils (%) (Auto) 1, Basophils (%) (Auto) 1, Neutrophils # (Auto) 2.1, Lymphocytes # (Auto) 1.1, Monocytes # (Auto) 0.4, Eosinophils # (Auto) 0.0, Basophils # (Auto) 0.0, Immature Granulocyte # (Auto) 0.0, Prothrombin Time 13.6, INR Comment 1.0, Activated Partial Thromboplast Time 26, D-Dimer 0.63, Sodium Level 136, Potassium Level 4.0, Chloride Level 98, Carbon Dioxide Level 22, Anion Gap 16, Blood Urea Nitrogen 25, Creatinine 1.58, Estimat Glomerular Filtration Rate 48, BUN/Creatinine Ratio 16, Glucose Level 97, Calcium Level 8.3, Corrected Calcium 8.1, Phosphorus Level 3.0, Magnesium Level 1.6, Total Bilirubin 0.7, Aspartate Amino Transf (AST/SGOT) 111, Alanine Aminotransferase (ALT/SGPT) 85, Alkaline Phosphatase 52, Troponin I < 0.028, B-Type Natriuretic Peptide < 10.0, Total Protein 7.8, Albumin 4.2, Procalcitonin 0.06, Coronavirus (COVID-19)(PCR) Negative, Coronavirus 2019 ([facility]) Negative 04/15/20 15:15: Blood Gas Puncture Site R RAD, Blood Gas Patient Temperature 37.0, Arterial Blood pH 7.47, Arterial Blood Partial Pressure CO2 29, Arterial Blood Partial Pressure O2 124, Arterial Blood HCO3 20, Arterial Blood Total CO2 21.3, Arterial Blood Oxygen Saturation 99, Arterial Blood Base Excess -2.8, Facundo Test YES-POS, Blood Gas Ventilator Setting NO, Blood Gas Inspired Oxygen RA 04/15/20 15:35: Lactic Acid Level 2.72 04/15/20 16:15: Urine Color YELLOW, Urine Clarity CLEAR, Urine pH 5.0, Urine Specific Adel >=1.030, Urine Protein NEGATIVE, Urine Glucose (UA) NEGATIVE, Urine Ketones NEGATIVE, Urine Nitrite NEGATIVE, Urine Bilirubin NEGATIVE, Urine Urobilinogen 0.2, Urine Leukocyte Esterase NEGATIVE, Urine RBC (Auto) NEGATIVE, Urine RBC NONE, Urine WBC 0-2, Urine Squamous Epithelial Cells NONE, Urine Crystals NONE, Urine Bacteria NEGATIVE, Urine Casts NONE, Urine Mucus NEGATIVE, Urine Culture Indicated NO, Urine Opiates Screen NEGATIVE, Urine Oxycodone Screen NEGATIVE, Urine Methadone Screen NEGATIVE, Urine Propoxyphene Screen NEGATIVE, Urine Barbiturates Screen NEGATIVE, Ur Tricyclic Antidepressants Screen NEGATIVE, Urine Phencyclidine Screen NEGATIVE, Urine Amphetamines Screen NEGATIVE, Urine Methamphetamines Screen NEGATIVE, Urine Benzodiazepines Screen POSITIVE, Urine Cocaine Screen NEGATIVE, Urine Cannabinoids Screen POSITIVE, Urine Legionella pneumophilia Ag Positive, Streptococcus pneumoniae Antigen Negative 04/15/20 16:16: Hepatitis A IgM Antibody Non-Reactive, Hepatitis B Surface Antigen Non-Reactive, Hepatitis B Core IgM Antibody Non-Reactive, Hepatitis C Antibody Non-Reactive 04/15/20 21:25: Lactic Acid Level 1.80 04/16/20 04:07: White Blood Count 2.3, Red Blood Count 3.59, Hemoglobin 13.0, Hematocrit 37, Mean Corpuscular Volume 103, Mean Corpuscular Hemoglobin 36, Mean Corpuscular Hemoglobin Concent 35, Red Cell Distribution Width 14.6, Platelet Count 98, Mean Platelet Volume 9.9, Immature Granulocyte % (Auto) 1, Neutrophils (%) (Auto) 45, Lymphocytes (%) (Auto) 43, Monocytes (%) (Auto) 8, Eosinophils (%) (Auto) 2, Basophils (%) (Auto) 1, Neutrophils # (Auto) 1.1, Lymphocytes # (Auto) 1.0, Monocytes # (Auto) 0.2, Eosinophils # (Auto) 0.0, Basophils # (Auto) 0.0, Immature Granulocyte # (Auto) 0.0, Sodium Level 133, Potassium Level 3.8, Chloride Level 96, Carbon Dioxide Level 23, Anion Gap 14, Blood Urea Nitrogen 20, Creatinine 1.34, Estimat Glomerular Filtration Rate 58, BUN/Creatinine Ratio 15, Glucose Level 96, Calcium Level 8.2, Corrected Calcium 8.3, Total Bilirubin 0.8, Aspartate Amino Transf (AST/SGOT) 104, Alanine Aminotransferase (ALT/SGPT) 76, Alkaline Phosphatase 50, Total Protein 7.3, Albumin 3.9, Blair-Cisneros Virus Capsid Ag IgG Ab [Pending], Blair-Cisneros Capsid Ag IgG Interp [Pending], Blair-Cisneros Virus Capsid Ag IgM Ab [Pending], Blair-Cisneros Capsid Ag IgM Interp [Pending], Blair-Cisneros Virus Early Antigen Ab [Pending], Blair-Cisneros Early Antigen Interp [Pending], Blair-Cisneros Nuclear Ag Ab Titer [Pending], Blair- Cisneros Nuclear Ag IgG Interp [Pending], Monoscreen NEGATIVE 04/16/20 04:57: Triglycerides Level 290, Cholesterol Level 201, LDL Cholesterol Direct 107, VLDL Cholesterol 58, HDL Cholesterol 69 04/16/20 05:58: Ammonia 28 Discharge Home Medications: Active Scripts Active Hydralazine HCl 25 Mg Tablet 25 Mg PO TID Advair Hfa 115-21 Mcg Inhaler (Fluticasone/Salmeterol) 12 Gm Hfa.aer.ad 2 Puff IH RTBID Amlodipine Besylate 5 Mg Tablet 10 Mg PO DAILY Cefdinir 300 Mg Capsule 300 Mg PO BID Iprat-Albut 0.5-3(2.5) mg/3 ml (Ipratropium/Albuterol Sulfate) 3 Ml Ampul.neb 3 Ml INH RTQ4HR Proair Hfa (Albuterol Sulfate) 1 Puff Puff 2 Puff IH Q4H PRN 1 PUFF = 90 MCG Reported Probiotic (Lactobacillus Combination No.4) 1 Each Capsule 1 Each PO DAILY Men's Multivitamin Tablet (Multivit-Min/Folic/Vit K/Lycop) 1 Each Tablet 1 Each PO DAILY Unisom Sleep Aid (Doxylamine Succinate) 25 Mg Tablet 25 Mg PO HS Gas-X (Simethicone) 125 Mg Capsule 125 Mg PO DAILY Pepcid AC (Famotidine) 10 Mg Tablet 10 Mg PO DAILY PRN Propranolol HCl 10 Mg Tablet 10 Mg PO DAILY PRN Metoprolol Succinate 25 Mg Tab.er.24h 25 Mg PO DAILY Triamterene-Hctz 37.5-25 mg Cp (Triamterene/Hydrochlorothiazid) 1 Each Capsule 1 Each PO DAILY Diazepam 5 Mg Tablet 5 Mg PO DAILY PRN Desvenlafaxine Succinate ER (Desvenlafaxine Succinate) 100 Mg Tab.er.24h 100 Mg PO DAILY Instructions to patient/family Please see electronic discharge instructions given to patient. MARTITA VELAZQUEZ DO Apr 16, 2020 10:43
[2020-04-16 10:50] LABS: CHOLESTEROL 201 MG/DL (< 200); HDL CHOLESTEROL 69 MG/DL (40-60); TRIGLYCERIDES 290 MG/DL (<150); VLDL CHOLESTEROL 58 MG/DL (5-40)
[2020-04-16] MEDS ORDERED: ALPRAZolam 0.5 MG (XANAX) TAB PO PRN (11:15)
[2020-04-16] MEDS ORDERED: ACETAMINOPHEN 325 MG TABLET PO PRN (11:15)
[2020-04-16] MEDS ORDERED: ENOXAPARIN 60 MG/0.6 ML (LOVENOX) SYR SC SCH (17:00)
== END 2020-04-16 10:39 | disposition home or self-care (01) ==
LOC: UNDOADMOB 14:00 → CSD 14:00 → UNDODISOB 04-16 14:15
PROVIDERS: ADMIT Internal Medicine; ATTEND Internal Medicine
DX: R06.00 Dyspnea, unspecified (principal); J45.909 Unspecified asthma, uncomplicated; E66.9 Obesity, unspecified; I10 Essential (primary) hypertension; N17.9 Acute kidney failure, unspecified; F41.9 Anxiety disorder, unspecified; F32.9 Major depressive disorder, single episode, unspecified; E78.00 Pure hypercholesterolemia, unspecified; Z79.899 Other long term (current) drug therapy; Z20.822 Contact with and (suspected) exposure to COVID-19
CPT/HCPCS: 36415; 71045; 76705; 80053; 80061; 80074; 80306; 81000; 82140; 82805; 83605; 83735; 83880; 84100; 84145; 84484; 85025; 85379; 85610; 85730; 86308; 86663; 86664; 86665; 87040; 87449; 87635; 87899; 93306; 94640; 94760; 99211

== ENCOUNTER → 2020-05-06 | Outpatient (CLI) | payer BC ==
[~2020-05-06] MED LIST changes: +AMLO-250 PO; +CEFD300C3 PO; +DESV100T16 PO; +DIAZ5TAB49 PO; +DOXY25TA35 PO; +FAMO10TA43 PO; +FLUT12AE4 IH; +HYDR-3923 PO; +IPRA3AMP31 INH; +LACT1CAP74 PO; +MTP25TSR PO; +MULT-1102 PO; +OLME20TA24 PO; +PROP10TA8 PO; +RT-ALBUINH IH; +RT-ALBUTEROL SULF 2.5 MG/3 ML PRE-MIX VIAL INH ONE; +SIME125C PO; +TRIA1CAP4 PO
== END ==
LOC: RT 07:45
PROVIDERS: ATTEND Internal Medicine
DX: R06.00 Dyspnea, unspecified (principal)
CPT/HCPCS: 94060; 94726; 94729

== ENCOUNTER → 2020-05-14 | Outpatient (CLI) | payer BC ==
[~2020-05-14] MED LIST changes: +CATHETER FLUSH 10 ML SYR IV PRN; +HOLD METFORMIN - RECEIVED CONTRAST 20 ML VIAL IV SCH; +IOHEXOL 350 MG/ML 100 ML (OMNIPAQUE 350) VIAL IV ONE; +NS 100 ML (IVPB) BAG IV ONE; -RT-ALBUTEROL SULF 2.5 MG/3 ML PRE-MIX VIAL INH ONE
--- NOTE | 2020-05-14 10:01 | Diagnostic Imaging Report ---
INDICATION: Shortness of breath on exertion and dizziness. TECHNIQUE: Multiple contiguous axial images were obtained through the chest after uneventful bolus administration of intravenous contrast. 3D reconstructed CTA MIP acquisitions were also performed. Auto Exposure Controls were utilized during the CT exam to meet ALARA standards for radiation dose reduction. COMPARISON: There is no prior chest CTA for comparison. FINDINGS: The bolus timing was somewhat suboptimal but no definite filling defects are seen in the pulmonary arterial structures. The thoracic aorta shows no evidence of aneurysm or dissection. Great vessel origins are patent and without stenosis. There are some coronary artery calcifications. There is no mediastinal or hilar adenopathy. There is no axillary adenopathy or chest wall lesion. There is no pleural or pericardial fluid. The visualized portions of the upper abdomen demonstrate severe fatty infiltration of the liver. Lung parenchymal windows demonstrate no pulmonary parenchymal infiltrates or nodules. IMPRESSION: CTA chest shows somewhat poor bolus but no definite filling defects in the pulmonary arterial structures. There is no acute process in the chest. Incidental note is made of severe fatty infiltration of the liver. Dictated by: Dictated on workstation # [id number]
== END ==
LOC: RAD 09:45
PROVIDERS: ATTEND Internal Medicine
DX: R06.00 Dyspnea, unspecified (principal); I10 Essential (primary) hypertension; R79.89 Other specified abnormal findings of blood chemistry
CPT/HCPCS: 71275

== ENCOUNTER 2020-05-23 18:01 | Inpatient (IN) | payer BC ==
[~2020-05-23] VITALS: Ht 190 cm; Wt 194.0 kg
[~2020-05-23 18:01] MED LIST changes: -CATHETER FLUSH 10 ML SYR IV PRN; -HOLD METFORMIN - RECEIVED CONTRAST 20 ML VIAL IV SCH; -IOHEXOL 350 MG/ML 100 ML (OMNIPAQUE 350) VIAL IV ONE; -NS 100 ML (IVPB) BAG IV ONE
[2020-05-23] MEDS ORDERED: ONDANSETRON 4 MG/2 ML (SDV) Z0FRAN IV PRN (18:30)
[2020-05-23] MEDS ORDERED: ONDANSETRON 4 MG (ZOFRAN) ORAL DISSOLVE TAB SL PRN (18:30)
[2020-05-23] MEDS ORDERED: 1/2 NS IV SOLUTION 1,000 ML IV PRN (18:30)
[2020-05-23] MEDS ORDERED: LORazepam INJ 2 MG/ML (ATIVAN) VIAL IM/IV PRN (18:30)
[2020-05-23] MEDS ORDERED: SENNA W/DOCUSATE (SENOKOT S) TABLET PO PRN (18:30)
[2020-05-23] MEDS ORDERED: D5 1/2 NS 1000 ML IV SOLUTION 1,000 ML IV PRN (18:30)
[2020-05-23] MEDS ORDERED: ANTACID SUSP 30 ML UDC (MYLANTA) PO PRN (18:30)
[2020-05-23 18:49] LABS: EOSINOPHILS % (AUTO) 1 % (0-10); HEMOGLOBIN 11.6 g/dL (13.3-17.7)
[2020-05-23 18:51] LABS: BASOPHILS % (AUTO) 1 % (0-10); HEMATOCRIT 33 % (40-54); LYMPHOCYTES # (AUTO) 0.7 10^3/uL (1.0-4.0); LYMPHOCYTES % (AUTO) 25 % (12-44); MEAN CORPUSCULAR HEMOGLOBIN 40 pg (25-34); MEAN CORPUSCULAR HGB CONC 36 g/dL (32-36); MEAN CORPUSCULAR VOLUME 111 fL (80-99); MEAN PLATELET VOLUME 10.7 fL (9.0-12.2); MONOCYTES # (AUTO) 0.2 10^3/uL (0.0-1.0); MONOCYTES % (AUTO) 8 % (0-12); NEUTROPHILS # (AUTO) 1.8 10^3/uL (1.8-7.8); NEUTROPHILS % (AUTO) 65 % (42-75); PLATELET COUNT 114 10^3/uL (130-400); WHITE BLOOD COUNT 2.7 10^3/uL (4.3-11.0)
[2020-05-23] MEDS ORDERED: LACTULOSE SYRUP 10GM/15ML (ENULOSE) 30ML UDC PO ONE (19:00)
[2020-05-23 19:38] LABS: ALBUMIN 3.7 GM/DL (3.2-4.5); CHLORIDE 95 MMOL/L (98-107); POTASSIUM 3.7 MMOL/L (3.6-5.0); SODIUM 137 MMOL/L (135-145)
[2020-05-23 19:39] LABS: CALCIUM 8.1 MG/DL (8.5-10.1)
[2020-05-23 19:40] LABS: GLUCOSE 104 MG/DL (70-105)
[2020-05-23 19:41] LABS: CARBON DIOXIDE 24 MMOL/L (21-32)
[2020-05-23 19:42] VITALS: BP 159/110
[2020-05-23 19:44] LABS: ALKALINE PHOSPHATASE 148 U/L (40-136); CREATININE SERUM 1.23 MG/DL (0.60-1.30); GFR ESTIMATED > 60
[2020-05-23 19:45] LABS: BUN/CREATININE RATIO 6
[2020-05-23 19:47] LABS: ALANINE AMINOTRANSFERASE 102 U/L (0-55)
[2020-05-23] MEDS ORDERED: RT-ALBUTEROL/IPRATROPIUM 3 ML (DUONEB) VIAL INH PRN ×2 (20:00→20:15)
[2020-05-23] MEDS ORDERED: FLUTICASONE/SALMETEROL 113-14 (AIRDUO RespiCLICK) IH ONE (20:08)
[2020-05-23] MEDS: FLUTICASONE/SALMETEROL 232-14 (AIRDUO RespiCLICK) IH SCH (20:19)
[2020-05-23] MEDS: meTOprolol TARTRATE 50 MG (LOPRESSOR) TAB PO SCH (20:39)
[2020-05-23] MEDS: LORazepam 1 MG (ATIVAN) TAB PO PRN (20:39)
--- NOTE | 2020-05-23 20:46 | Progress Note ---
Progress Note This is a 44yoWM clinic patient of mine for 16 years who has a h/o HTN and depression with anxiety s/p bariatric surgery 2013 who presented to the clinic for lab results which revealed liver failure. Patient had been admitted 04/15/20 for shortness of breath with essentially negative workup but patient worsened so additional w/u ensued. ECHO was normal, CT revealed no PE, COVID negative, COVID IgG abx negative, BNP normal, ABG normal, PFT revealed decreased diffusing capacity and asthma and he became compliant with CPAP of recent. I conferred with Dr Vero Ochoa at [facility] hepatology and he recommended another alcohol consumption question, considering he has not been an alcohol user in the entire time I have treated him and he had denied using alcohol after asked by multiple healthcare providers within the last 6 weeks, but he came forth with divulging h e was drinking 1 liter of Vodka every 2 days and his had just found this information out also. Alcoholic hepatitis was diagnosed and liver failure and may need to be transferred to tomorrow. MARTITA VELAZQUEZ DO May 23, 2020 20:46
[2020-05-23] MEDS: LACTULOSE SYRUP 10GM/15ML (ENULOSE) 30ML UDC PO SCH (21:28)
[2020-05-23] MEDS: ENOXAPARIN 60 MG/0.6 ML (LOVENOX) SYR SC SCH (21:29)
[2020-05-23] MEDS: MAGNESIUM OXIDE (MAG-OX)400 MG TAB PO SCH (21:29)
[2020-05-23] MEDS ORDERED: RT-ALBUTEROL/IPRATROPIUM 3 ML (DUONEB) VIAL INH SCH (22:00)
[2020-05-23] MEDS: guaiFENesin/DM (ROBITUSSIN DM) 10 ML UDC PO PRN (23:31)
[2020-05-23 23:57] LABS: AMPHETAMINE SCREEN, URINE NEGATIVE (NEGATIVE); BARBITURATE SCREEN URINE NEGATIVE (NEGATIVE); BENZODIAZEPINES SCREEN URINE POSITIVE (NEGATIVE); CANNABINOID SCREEN, URINE POSITIVE (NEGATIVE); COCAINE SCREEN URINE NEGATIVE (NEGATIVE); METHADONE STAT NEGATIVE (NEGATIVE); METHAMPHETAMINE SCREEN URINE S NEGATIVE (NEGATIVE); OPIATE SCREEN URINE NEGATIVE (NEGATIVE); OXYCODONE STAT NEGATIVE (NEGATIVE); PROPOXYPHENE STAT NEGATIVE (NEGATIVE); TRICYCLIC ANTIDEPRESSANTS SCRE NEGATIVE (NEGATIVE)
[2020-05-24] MEDS: RT-ALBUTEROL/IPRATROPIUM 3 ML (DUONEB) VIAL INH SCH ×6 (01:39→22:23)
[2020-05-24 01:42] LABS: BILIRUBIN,URINE 3+ (NEGATIVE); CLARITY,URINE CLEAR; COLOR,URINE AMBER; GLUCOSE, URINE (UA) NEGATIVE (NEGATIVE); KETONES,URINE TRACE (NEGATIVE); LEUKOCYTE ESTERASE ,URINE NEGATIVE (NEGATIVE); NITRITE,URINE POSITIVE (NEGATIVE); PROTEIN,URINE 1+ (NEGATIVE)
[2020-05-24 02:01] LABS: AMORPHOUS SEDIMENT,UR MOD AMOR URATES /LPF; BACTERIA,URINE FEW /HPF; HYALINE CASTS, URINE 0-2 /LPF; WBC,URINE 0-2 /HPF
[2020-05-24 03:05] LABS: BASOPHILS % (AUTO) 1 % (0-10); EOSINOPHILS % (AUTO) 0 % (0-10); HEMATOCRIT 30 % (40-54); HEMOGLOBIN 10.7 g/dL (13.3-17.7); MEAN CORPUSCULAR HGB CONC 35 g/dL (32-36)
[2020-05-24 03:07] LABS: LYMPHOCYTES # (AUTO) 0.7 10^3/uL (1.0-4.0); LYMPHOCYTES % (AUTO) 28 % (12-44); MEAN CORPUSCULAR HEMOGLOBIN 39 pg (25-34); MEAN CORPUSCULAR VOLUME 111 fL (80-99); MEAN PLATELET VOLUME 11.3 fL (9.0-12.2); MONOCYTES # (AUTO) 0.2 10^3/uL (0.0-1.0); MONOCYTES % (AUTO) 9 % (0-12); NEUTROPHILS # (AUTO) 1.6 10^3/uL (1.8-7.8); NEUTROPHILS % (AUTO) 61 % (42-75); PLATELET COUNT 96 10^3/uL (130-400); WHITE BLOOD COUNT 2.6 10^3/uL (4.3-11.0)
[2020-05-24 03:17] LABS: ALBUMIN 3.4 GM/DL (3.2-4.5)
[2020-05-24 03:18] LABS: CHLORIDE 94 MMOL/L (98-107); POTASSIUM 3.5 MMOL/L (3.6-5.0); SODIUM 136 MMOL/L (135-145)
[2020-05-24 03:19] LABS: CALCIUM 7.9 MG/DL (8.5-10.1)
[2020-05-24 03:20] LABS: GLUCOSE 86 MG/DL (70-105); TOTAL PROTEIN 6.4 GM/DL (6.4-8.2)
[2020-05-24 03:21] LABS: CARBON DIOXIDE 24 MMOL/L (21-32)
[2020-05-24 03:22] LABS: BILIRUBIN,TOTAL 8.1 MG/DL (0.1-1.0)
[2020-05-24 03:23] LABS: ALKALINE PHOSPHATASE 135 U/L (40-136); CREATININE SERUM 1.16 MG/DL (0.60-1.30); GFR ESTIMATED > 60
[2020-05-24 03:25] LABS: BUN/CREATININE RATIO 7
[2020-05-24 03:26] LABS: ALANINE AMINOTRANSFERASE 95 U/L (0-55)
[2020-05-24] MEDS: hydrALAZINE (APESOLINE) 20 MG/ML VIAL IV PRN ×3 (03:26→20:23)
[2020-05-24] MEDS: guaiFENesin/DM (ROBITUSSIN DM) 10 ML UDC PO PRN (03:26)
[2020-05-24] MEDS: LORazepam 1 MG (ATIVAN) TAB PO PRN ×2 (03:34→06:50)
[2020-05-24 03:45] LABS: SMEAR SCAN COMMENT YES
--- NOTE | 2020-05-24 04:49 | Pulmonary Consultation ---
History of Present Illness History of Present Illness Date Seen by Provider: May 24, 2020 Time Seen by Provider: 04:42 Date of Admission History of Present Illness 44yo with hx of COPD, alcohol/ marijuanna dependance and liver cirrhosis/failure directly admitted from Dr. Booth's office secondary to worsening liver failure. Pt was recnetly admitted 04/15 secondary to SOB. COVID and COVID IGG was negative. Pt drinks 1 liter of Vodka every 2 days. Allergies and Home Medications Allergies Coded Allergies: No Known Drug Allergies (Verified , 05/14/08) Home Medications Albuterol Sulfate 1 Puff Puff, 2 PUFF IH Q4H PRN for SHORTNESS OF BREATH 1 PUFF = 90 MCG Prescribed by: MARTITA BOOTH on 04/16/20 104 Amlodipine Besylate 5 Mg Tablet, 10 MG PO DAILY Prescribed by: MARTITA BOOTH on 04/16/20 1042 Cefdinir 300 Mg Capsule, 300 MG PO BID Prescribed by: MARTITA BOOTH on 04/16/20 1042 Desvenlafaxine Succinate 100 Mg Tab.er.24h, 100 MG PO DAILY, (Reported) Diazepam 5 Mg Tablet, 5 MG PO DAILY PRN for ANXIETY, (Reported) Doxylamine Succinate 25 Mg Tablet, 25 MG PO HS, (Reported) Famotidine 10 Mg Tablet, 10 MG PO DAILY PRN for HEARTBURN, (Reported) Fluticasone/Salmeterol 12 Gm Hfa.aer.ad, 2 PUFF IH RTBID Prescribed by: MARTITA BOOTH on 04/16/20 104 Hydralazine HCl 25 Mg Tablet, 25 MG PO TID Prescribed by: MARTITA BOOTH on 04/16/20 1042 Ipratropium/Albuterol Sulfate 3 Ml Ampul.neb, 3 ML INH RTQ4HR Prescribed by: MARTITA BOOTH on 04/16/20 1042 Lactobacillus Combination No.4 1 Each Capsule, 1 EACH PO DAILY, (Reported) Metoprolol Succinate 25 Mg Tab.er.24h, 25 MG PO DAILY, (Reported) Multivit-Min/Folic/Vit K/Lycop 1 Each Tablet, 1 EACH PO DAILY, (Reported) Propranolol HCl 10 Mg Tablet, 10 MG PO DAILY PRN for ANXIETY, (Reported) Simethicone 125 Mg Capsule, 125 MG PO DAILY, (Reported) Triamterene/Hydrochlorothiazid 1 Each Capsule, 1 EACH PO DAILY, (Reported) Past Pajobfe-Cjgisi-Wiktkr Hx Patient Social History Drug of Choice: THC Smoking Status: Former Smoker Have you traveled recently?: No Substance type: Marijuana Alcohol Use?: Yes Past Medical History Abdominal High Cholesterol, Hypertension Reproductive Disorders: No Anxiety, Depression Review of Systems Time Seen by Provider: 04:54 Sepsis Event Evaluation Height, Weight, BMI Height: '" Weight: lbs. oz. kg; 53.24 BMI Method: Exam Exam Vital Signs Date Time Temp Pulse Resp B/P (MAP) Pulse Ox O2 Delivery O2 Flow Rate FiO2 05/24/20 04:00 98 Room Air 05/24/20 03:00 82 172/97 (122) 95 Room Air 05/24/20 02:00 94 91 Room Air 05/24/20 01:39 95 Room Air 05/24/20 01:00 84 05/24/20 01:00 82 175/103 (127) 92 Room Air 05/24/20 00:00 98 Room Air 05/24/20 00:00 89 151/92 (111) 96 Room Air 05/23/20 23:00 117 138/106 (117) 95 Room Air 05/23/20 22:00 74 146/90 (108) 92 Room Air 05/23/20 20:45 80 153/88 (109) 90 Room Air 05/23/20 20:21 100 Room Air 05/23/20 20:20 100 Room Air 05/23/20 20:15 79 152/112 (125) 96 Room Air 05/23/20 20:06 35.8 05/23/20 20:00 98 Room Air 05/23/20 19:45 81 170/126 (141) 95 Room Air 05/23/20 19:42 36.6 87 95 05/23/20 19:30 113 159/110 (126) 92 Room Air 05/23/20 19:15 92 156/134 (141) 90 Room Air 05/23/20 19:01 94 05/23/20 19:00 36.6 92 20 152/101 (118) 98 Room Air I & O 05/24/20 07:00 Intake Total 600 ml Output Total 250 ml Balance 350 ml Height & Weight Height: '" Weight: lbs. oz. kg; 53.24 BMI Method: Capillary Refill: Less Than 3 Seconds Results Lab Laboratory Tests 05/23/20 18:39 05/24/20 02:36 05/24/20 02:45 Assessment/Plan Assessment/Plan Alcoholic hepatitis with elevated bili denies abdominal pain -Check abdominal US -Drinks 1 liter of Vodka every 2 days Hepatic encephalopathy -Continue Lactulose and start Rifaxamine Pancytopenia - secondary to ETOH -Monitor Asthma/COPD AE -SVNS -Add solumedrol Depression/anxiety Bariatric surgery in 2013 YAN WEN DO May 24, 2020 04:49
[2020-05-24 05:08] LABS: PHOSPHORUS 3.6 MG/DL (2.3-4.7)
[2020-05-24 05:10] LABS: MAGNESIUM 1.3 MG/DL (1.6-2.4)
[2020-05-24] MEDS ORDERED: NS IV 500 ML 500 ML ONE (05:44)
[2020-05-24] MEDS: POTASSIUM CL 10MEQ/50ML IVPB 50 ML IV SCH ×4 (05:51→09:41)
[2020-05-24] MEDS: cefTRIAXone FOR IV USE 1,000 MG in WATER (STERILE) FOR INJECTION 10 ML IV SCH (06:00)
[2020-05-24] MEDS: methylPREDNISolone 40 MG/ML (Solu-MEDROL) VIAL IV SCH ×3 (06:10→17:11)
[2020-05-24] MEDS: ENOXAPARIN 60 MG/0.6 ML (LOVENOX) SYR SC SCH ×2 (07:30→19:27)
--- NOTE | 2020-05-24 07:38 | Diagnostic Imaging Report ---
Indication: Hepatitis, shortness of breath. Comparison: 04/15/2020 Findings: Single view of the chest demonstrates clear lungs bilaterally. Heart is normal. There is no pneumothorax. Osseous structures normal. Impression: Negative chest Dictated by: Dictated on workstation # [id number]
[2020-05-24] MEDS ORDERED: RT-BUDESONIDE NEBS 0.5 MG/2ML (PULMICORT) AMP INH SCH (08:00)
[2020-05-24] MEDS: THIAMINE 100 MG (VITAMIN B-1) TAB PO SCH (08:08)
[2020-05-24] MEDS: meTOprolol TARTRATE 50 MG (LOPRESSOR) TAB PO SCH ×2 (08:08→19:27)
[2020-05-24] MEDS: MULTIVIT W/MINERALS TAB (THERAGRAN M) PO SCH (08:08)
--- NOTE | 2020-05-24 08:12 | Diagnostic Imaging Report ---
INDICATION: Liver failure. Ultrasound of the liver and right upper quadrant was performed in routine fashion. The study is somewhat technically limited. The liver shows mild diffuse increased echogenicity which may represent fatty change. Liver is difficult to penetrate. Gallbladder appears unremarkable. There is no significant gallbladder wall thickening. Common duct could not be visualized but there was no intrahepatic biliary dilatation seen. Pancreas is not well seen due to overlying gas. Aorta and IVC could not be well visualized due to overlying gas. Right kidney measured 12.3 cm and appeared normal. There is no ascites. Portal vein was patent. IMPRESSION: Technically limited study. There is fatty infiltration of the liver but no definite focal liver lesion is seen. There is no overt biliary dilatation or gallbladder pathology. There was no ascites. Dictated by: Dictated on workstation # [id number]
[2020-05-24] MEDS: FOLIC ACID 1 MG TAB PO SCH (08:15)
[2020-05-24] MEDS: MAGNESIUM OXIDE (MAG-OX)400 MG TAB PO SCH ×2 (08:15→19:27)
[2020-05-24] MEDS: LACTULOSE SYRUP 10GM/15ML (ENULOSE) 30ML UDC PO SCH ×3 (08:15→19:23)
[2020-05-24] MEDS: RIFAXIMIN 550 MG TABLET (XIFAXAN) PO SCH ×2 (08:15→19:27)
[2020-05-24] MEDS: LORazepam INJ 2 MG/ML (ATIVAN) VIAL IVP PRN ×4 (09:40→19:34)
[2020-05-24] MEDS: FLUTICASONE/SALMETEROL 232-14 (AIRDUO RespiCLICK) IH SCH ×2 (10:09→19:02)
[2020-05-24] MEDS ORDERED: LACT10SO64 PO (11:51)
[2020-05-24] MEDS ORDERED: RT-ALBUINH INH (11:51)
[2020-05-24] MEDS ORDERED: FURO40TA4 PO (11:51)
[2020-05-24] MEDS ORDERED: ELDERBERRY PO (11:51)
[2020-05-24] MEDS ORDERED: METO50TA7 PO (11:51)
[2020-05-24] MEDS ORDERED: FLUT12AE4 IH (11:51)
[2020-05-24] MEDS ORDERED: HYDR-3923 PO (11:51)
[2020-05-24] MEDS ORDERED: IPRA3AMP31 NEB (11:51)
--- NOTE | 2020-05-24 13:29 | History & Physical-Hospitalist ---
CORNEL,JAGJIT [facility] 05/24/20 1329: History of Present Illness HPI/Chief Complaint Kaushal Muhammad is a 44 y/o male that was directly admitted to [facility] from Dr. Powers office on 05/23. The patient has been having progressive SOB starting back in February of 2020. While at clinic the patient appeared jaundice and labs were drawn and indicated Alcoholic Hepatitis. The patient has adamantly denied previous alcohol use but admitted to 1L of Vodka every other day. Patients was beginning to show signs of liver failure and admission was required. He is laying in bed. States he is having some anxiety and shaking beginning to occur. He denies pain. Has minimal urine output since admission but has been having bowel movements. He denies the following: Chest pain, Abdominal pain, Dizziness, Alerted mental status, F/C and N/V at this ti me. If patient worsens or begins to have increase lab values relative to liver failure or hepatic encephalopathy transfer to [facility] will be initiated. Overall patient is stable. Source: patient Exam Limitations: no limitations Date Seen 05/24/20 Time Seen by a Provider: 10:55 Attending Physician Marilyn Velazquez DO PCP Marilyn Velazquez DO Referring Physician Date of Admission May 23, 2020 at 18:14 Home Medications & Allergies Home Medications Reviewed patient Home Medication Reconciliation performed by pharmacy medication reconciliations breeder hen service technician and/or nursing. Patients Allergies have been reviewed. Allergies Allergies Coded Allergies No Known Drug Allergies (Verified05/14/08) Past Oeozjsj-Tylwbv-Paackq Hx Patient Social History Drug of Choice: THC Smoking Status: Former Smoker Recent Foreign Travel: No Contact w/other who traveled: No Past Medical History Surgeries: Abdominal Cardiac: High Cholesterol, Hypertension Reproductive: No Psychosocial: Anxiety, Depression Review of Systems Constitutional: No dizziness, No fever EENTM: hoarseness; No blurred vision Respiratory: No cough, No hemoptysis; short of breath Cardiovascular: no symptoms reported Gastrointestinal: no symptoms reported Genitourinary: no symptoms reported Musculoskeletal: no symptoms reported Skin: no symptoms reported Psychiatric/Neurological: Anxiety Physical Exam Physical Exam Vital Signs Vital Signs - First Documented 05/23/20 19:00 Temp 36.6 Pulse 92 Resp 20 B/P (MAP) 152/101 (118) Pulse Ox 98 O2 Delivery Room Air Capillary Refill : Less Than 3 Seconds Height, Weight, BMI Height: '" Weight: lbs. oz. kg; 53.24 BMI Method: General Appearance: Mild Distress, Obese HEENT: Scleral Icterus (L), Scleral Icterus (R) Neck: Full Range of Motion, Non Tender Respiratory: Chest Non Tender, Lungs Clear, No Accessory Muscle Use, No Respiratory Distress Cardiovascular: Normal Peripheral Pulses, Tachycardia Gastrointestinal: Non Tender, Soft, Distended, Hepatomegaly Back: No No CVA Tenderness, No No Vertebral Tenderness Extremity: Non Tender, No Calf Tenderness, Pedal Edema (BL) Neurologic/Psychiatric: Alert, Oriented x3 Skin: Warm/Dry, Jaundice (Minimal) Lymphatic: No Adenopathy Results Results/Procedures Labs Laboratory Tests 05/23/20 18:39 05/24/20 02:36 05/24/20 02:45 Patient resulted labs reviewed. Assessment/Plan Admission Diagnosis 1. Alcoholic Hepatitis 2. Pancytopenia 3. Elevated Liver enzymes 4. Elevated Billirubin 5. Elevated Ammonia 6. Asthma/COPD 7. Depression/Anxiety 8. Bariatric Surgery 2013 Plan 05/24 - continue CIWA protocol - lactulose - Monitor labs - US and CXR reviewed - appreciate Pulmonary recs - [facility] on [place] if needed - Continue abx - UA culture pending - reg diet - transfer to cardiac unit MARILYN VELAZQUEZ DO 05/25/202040: History of Present Illness HPI/Chief Complaint Complex workup the past 6 weeks Patient in withdrawal status currently Supportive care [facility] contacted Source: patient Exam Limitations: no limitations Past Tjzncxy-Kdjtmf-Miaddi Hx Past Med/Social Hx: Reviewed Nursing Past Med/Soc Hx, Reviewed and Corrections made Patient Social History Marrital Status: Employed/Student: employed Alcohol Use: Regular Use Smoking Status: Never a Smoker Past Medical History bariatric surgery Respiratory: Asthma, COPD, Sleep Apnea Cardiac: Hypertension Musculoskeletal: Chronic Back Pain Review of Systems Constitutional: see HPI Physical Exam Physical Exam General Appearance: Anxious, Chronically ill, Mild Distress, Obese Respiratory: Normal Breath Sounds, No Accessory Muscle Use, No Respiratory Distress Cardiovascular: Tachycardia Assessment/Plan Admission Diagnosis Monitor closely ICU EtoH withdrawal Admission Status: Inpatient Order (span 2 midnights) Reason for Inpatient Admission: etoh w/d Diagnosis/Problems Diagnosis/Problems (1) Alcoholic hepatitis (2) Bilirubinemia (3) Bilirubinuria (4) Serum ammonia increased (5) KARINE on CPAP (6) Obesity, morbid, BMI 50 or higher (7) Liver failure (8) Dyspnea Supervisory-Addendum Brief Verification & Attestation Participated in pt care: history, MDM, physical Personally performed: exam, history, MDM, supervision of care Care discussed with: Medical Student Procedures: n/a Results interpretation: Verified all documentation Verification and Attestation of Medical Student E/M Service A medical student performed and documented this service in my presence. I reviewed and verified all information documented by the medical student and made modifications to such information, when appropriate. I personally performed the physical exam and medical decision making. Marilyn Velazquez, May 25, 2020,20:41 [facility]IT [facility] May 24, 2020 13:29 MARILYN VELAZQUEZ DO May 25, 2020 20:41
[2020-05-24] MEDS: inSUlin ASPART (NovoLOG) 1 UNIT/0.01 ML (CHARGE PER UNIT) SC SCH ×2 (15:21→20:19)
[2020-05-24] MEDS ORDERED: amLODIPine 5 MG (NORVASC) TAB PO ONE (21:15)
[2020-05-24] MEDS: LORazepam INJ 2 MG/ML (ATIVAN) VIAL IV PRN ×2 (21:42→23:38)
[2020-05-25] MEDS: RT-ALBUTEROL/IPRATROPIUM 3 ML (DUONEB) VIAL INH SCH ×6 (02:16→22:42)
[2020-05-25] MEDS: LORazepam INJ 2 MG/ML (ATIVAN) VIAL IVP PRN (03:33)
[2020-05-25 03:45] LABS: EOSINOPHILS % (AUTO) 0 % (0-10)
[2020-05-25 03:47] LABS: BASOPHILS % (AUTO) 0 % (0-10); HEMATOCRIT 31 % (40-54); HEMOGLOBIN 11.1 g/dL (13.3-17.7); LYMPHOCYTES # (AUTO) 0.5 10^3/uL (1.0-4.0); LYMPHOCYTES % (AUTO) 16 % (12-44); MEAN CORPUSCULAR HEMOGLOBIN 40 pg (25-34); MEAN CORPUSCULAR HGB CONC 36 g/dL (32-36); MEAN CORPUSCULAR VOLUME 112 fL (80-99); MEAN PLATELET VOLUME 11.4 fL (9.0-12.2); MONOCYTES # (AUTO) 0.3 10^3/uL (0.0-1.0); MONOCYTES % (AUTO) 9 % (0-12); NEUTROPHILS # (AUTO) 2.1 10^3/uL (1.8-7.8); NEUTROPHILS % (AUTO) 74 % (42-75); PLATELET COUNT 100 10^3/uL (130-400); WHITE BLOOD COUNT 2.8 10^3/uL (4.3-11.0)
[2020-05-25 03:55] LABS: ALBUMIN 3.7 GM/DL (3.2-4.5); CHLORIDE 92 MMOL/L (98-107); POTASSIUM 3.6 MMOL/L (3.6-5.0); SODIUM 133 MMOL/L (135-145)
[2020-05-25 03:56] LABS: AMMONIA 46 UMOL/L (11-32); CALCIUM 8.2 MG/DL (8.5-10.1)
[2020-05-25 03:57] LABS: GLUCOSE 114 MG/DL (70-105); TOTAL PROTEIN 6.8 GM/DL (6.4-8.2)
[2020-05-25 03:58] LABS: CARBON DIOXIDE 24 MMOL/L (21-32)
[2020-05-25 04:01] LABS: ALKALINE PHOSPHATASE 131 U/L (40-136); CREATININE SERUM 1.05 MG/DL (0.60-1.30); GFR ESTIMATED > 60
[2020-05-25 04:02] LABS: BUN/CREATININE RATIO 10
[2020-05-25 04:03] LABS: INR 1.1 (0.8-1.4); PROTHROMBIN TIME PATIENT 14.2 SEC (12.2-14.7)
[2020-05-25 04:04] LABS: ALANINE AMINOTRANSFERASE 91 U/L (0-55)
[2020-05-25 04:21] LABS: BILIRUBIN,TOTAL 11.4 MG/DL (0.1-1.0)
[2020-05-25] MEDS: inSUlin ASPART (NovoLOG) 1 UNIT/0.01 ML (CHARGE PER UNIT) SC SCH ×4 (04:48→21:03)
[2020-05-25] MEDS: MULTIVIT W/MINERALS TAB (THERAGRAN M) PO SCH (05:24)
[2020-05-25] MEDS: THIAMINE 100 MG (VITAMIN B-1) TAB PO SCH (05:24)
[2020-05-25] MEDS: cefTRIAXone FOR IV USE 1,000 MG in WATER (STERILE) FOR INJECTION 10 ML IV SCH (05:24)
[2020-05-25] MEDS: hydrALAZINE (APESOLINE) 20 MG/ML VIAL IV PRN ×2 (05:35→23:33)
[2020-05-25] MEDS: FLUTICASONE/SALMETEROL 232-14 (AIRDUO RespiCLICK) IH SCH ×2 (07:06→18:25)
[2020-05-25] MEDS: methylPREDNISolone 40 MG/ML (Solu-MEDROL) VIAL IV SCH ×2 (08:13→21:02)
[2020-05-25] MEDS: meTOprolol TARTRATE 50 MG (LOPRESSOR) TAB PO SCH ×2 (08:13→21:03)
[2020-05-25] MEDS: amLODIPine 5 MG (NORVASC) TAB PO SCH (08:13)
[2020-05-25] MEDS: ENOXAPARIN 60 MG/0.6 ML (LOVENOX) SYR SC SCH ×2 (08:13→21:02)
[2020-05-25] MEDS: FOLIC ACID 1 MG TAB PO SCH (08:13)
[2020-05-25] MEDS: RIFAXIMIN 550 MG TABLET (XIFAXAN) PO SCH ×2 (08:14→21:03)
[2020-05-25] MEDS: MAGNESIUM OXIDE (MAG-OX)400 MG TAB PO SCH ×2 (08:14→22:39)
[2020-05-25] MEDS: LACTULOSE SYRUP 10GM/15ML (ENULOSE) 30ML UDC PO SCH ×3 (08:14→19:04)
[2020-05-25] MEDS: LORazepam INJ 2 MG/ML (ATIVAN) VIAL IV PRN ×2 (09:36→15:32)
[2020-05-25] MEDS: guaiFENesin/DM (ROBITUSSIN DM) 10 ML UDC PO PRN ×2 (10:47→17:35)
--- NOTE | 2020-05-25 11:23 | Progress Note - Hospitalist ---
Subjective HPI/CC On Admission Date Seen by Provider: May 25, 2020 Time Seen by Provider: 11:15 Kaushal Muhammad is a 44 y/o male that was directly admitted to [facility] from Dr. Powers office on 05/23. The patient has been having progressive SOB starting back in February of 2020. While at clinic the patient appeared jaundice and labs were drawn and indicated Alcoholic Hepatitis. The patient has adamantly denied previous alcohol use but admitted to 1L of Vodka every other day. Patients was beginning to show signs of liver failure and admission was required. He is laying in bed. States he is having some anxiety and shaking beginning to occur. He denies pain. Has minimal urine output since admission but has been having bowel movements. He denies the following: Chest pain, Abdominal pain, Dizziness, Alerted mental status, F/C and N/V at this time. If patient worsens or begins to have increase lab values relative to liver failure or hepatic encephalopathy transfer to [facility] will be initiated. Overall patient is stable. Subjective/Events-last exam Patient doing better BP is better with meds Elevated total bilirubin noted Ammonia improved O2 ok Anxiety requiring scheduled Ativan PO 1mg PO [id number] ETOH withdrawal is severe Tachycardia continues Moving to [facility] Review of Systems General: Fatigue, Malaise Objective Exam Vital Signs Vital Signs Date Time Temp Pulse Resp B/P (MAP) Pulse Ox O2 Delivery O2 Flow Rate FiO2 05/26/20 05:40 37.0 20 144/103 (117) 96 Simple Mask 05/26/20 00:19 107 Capillary Refill : Less Than 3 Seconds General Appearance: No Apparent Distress, WD/WN, Anxious, Chronically ill, Obese Respiratory: Chest Non Tender, Lungs Clear, Normal Breath Sounds, No Accessory Muscle Use, No Respiratory Distress Cardiovascular: No Edema, No Gallop, No JVD, No Murmur, Normal Peripheral Pulses, Tachycardia Neurologic/Psychiatric: Alert, Oriented x3, No Motor/Sensory Deficits, Normal Mood/Affect Results/Procedures Lab Laboratory Tests 05/26/20 03:33 Patient resulted labs reviewed. Assessment/Plan Assessment and Plan Assess & Plan/Chief Complaint Assessment: Severe alcohol withdrawal Acute alcoholic hepatitis with early liver failure Morbid obesity HTN OOC Plan: Transfer to [facility] Ativan Monitor liver function high risk for fulminant liver failure MARTITA VELAZQUEZ DO May 25, 2020 11:23
[2020-05-25] MEDS: LORazepam 0.5 MG (ATIVAN) TABLET PO SCH ×5 (13:32→23:32)
[2020-05-26] MEDS: RT-ALBUTEROL/IPRATROPIUM 3 ML (DUONEB) VIAL INH SCH ×6 (01:47→22:43)
[2020-05-26] MEDS: LORazepam 0.5 MG (ATIVAN) TABLET PO SCH ×7 (03:21→21:00)
[2020-05-26 04:09] LABS: BASOPHILS % (AUTO) 0 % (0-10); EOSINOPHILS % (AUTO) 0 % (0-10); HEMATOCRIT 33 % (40-54); HEMOGLOBIN 11.6 g/dL (13.3-17.7); LYMPHOCYTES # (AUTO) 0.6 10^3/uL (1.0-4.0); LYMPHOCYTES % (AUTO) 13 % (12-44); MEAN CORPUSCULAR HEMOGLOBIN 41 pg (25-34); MEAN CORPUSCULAR HGB CONC 35 g/dL (32-36); MEAN CORPUSCULAR VOLUME 117 fL (80-99); MONOCYTES # (AUTO) 0.4 10^3/uL (0.0-1.0); MONOCYTES % (AUTO) 9 % (0-12); NEUTROPHILS # (AUTO) 3.6 10^3/uL (1.8-7.8); NEUTROPHILS % (AUTO) 77 % (42-75); PLATELET COUNT 156 10^3/uL (130-400); WHITE BLOOD COUNT 4.7 10^3/uL (4.3-11.0)
[2020-05-26 04:21] LABS: ALBUMIN 3.9 GM/DL (3.2-4.5)
[2020-05-26 04:22] LABS: POTASSIUM 3.8 MMOL/L (3.6-5.0)
[2020-05-26 04:24] LABS: TOTAL PROTEIN 7.4 GM/DL (6.4-8.2)
[2020-05-26 04:28] LABS: CREATININE SERUM 1.8 MG/DL (0.60-1.30)
[2020-05-26 04:33] LABS: BILIRUBIN,TOTAL 15.6 MG/DL (0.1-1.0)
[2020-05-26] MEDS ORDERED: amLODIPine 5 MG (NORVASC) TAB PO ONE (05:15)
[2020-05-26] MEDS: THIAMINE 100 MG (VITAMIN B-1) TAB PO SCH (05:53)
[2020-05-26] MEDS: MULTIVIT W/MINERALS TAB (THERAGRAN M) PO SCH (05:53)
[2020-05-26] MEDS: inSUlin ASPART (NovoLOG) 1 UNIT/0.01 ML (CHARGE PER UNIT) SC SCH ×4 (05:53→21:23)
[2020-05-26] MEDS ORDERED: cefTRIAXone 1,000 MG IV (ROCEPHIN) VIAL ONE (05:56)
[2020-05-26] MEDS ORDERED: WATER (STERILE) FOR INJECTION 10 ML ONE (05:56)
[2020-05-26] MEDS: cefTRIAXone FOR IV USE 1,000 MG in WATER (STERILE) FOR INJECTION 10 ML IV SCH (06:03)
[2020-05-26] MEDS: FLUTICASONE/SALMETEROL 232-14 (AIRDUO RespiCLICK) IH SCH ×2 (07:47→19:28)
[2020-05-26 08:10] LABS: INR 1.1 (0.8-1.4)
[2020-05-26] MEDS: methylPREDNISolone 40 MG/ML (Solu-MEDROL) VIAL IV SCH (08:56)
[2020-05-26] MEDS: ENOXAPARIN 60 MG/0.6 ML (LOVENOX) SYR SC SCH ×2 (08:56→21:21)
[2020-05-26] MEDS: MAGNESIUM OXIDE (MAG-OX)400 MG TAB PO SCH (08:58)
[2020-05-26] MEDS: FOLIC ACID 1 MG TAB PO SCH (08:58)
[2020-05-26] MEDS: meTOprolol TARTRATE 50 MG (LOPRESSOR) TAB PO SCH ×2 (08:58→21:21)
[2020-05-26] MEDS: amLODIPine 5 MG (NORVASC) TAB PO SCH (08:59)
[2020-05-26] MEDS: LACTULOSE SYRUP 10GM/15ML (ENULOSE) 30ML UDC PO SCH ×3 (08:59→19:53)
[2020-05-26] MEDS: hydrALAZINE (APRESOLINE) 25 MG TAB PO SCH ×3 (09:03→21:24)
[2020-05-26] MEDS: RIFAXIMIN 550 MG TABLET (XIFAXAN) PO SCH ×2 (10:44→21:21)
--- NOTE | 2020-05-26 11:12 | Progress Note - Hospitalist ---
Subjective HPI/CC On Admission Date Seen by Provider: May 26, 2020 Time Seen by Provider: 11:15 Complex workup the past 6 weeks Patient in withdrawal status currently Supportive care [facility] contacted Subjective/Events-last exam Patient improved TB 15.6 as expected in etoh hepatitis INR remains normal 1.1 Platelets rebounding No pain reported Dyspnea improved Checked meds and labs Sister at bedside Review of Systems General: Fatigue, Malaise Neurological: Weakness Objective Exam Vital Signs Vital Signs Date Time Temp Pulse Resp B/P (MAP) Pulse Ox O2 Delivery O2 Flow Rate FiO2 05/26/20 16:00 94 Room Air 05/26/20 15:39 37.2 116 20 132/101 (111) Capillary Refill : Less Than 3 Seconds General Appearance: No Apparent Distress, WD/WN, Chronically ill, Obese Respiratory: Lungs Clear Cardiovascular: Regular Rate, Rhythm Neurologic/Psychiatric: Alert, Oriented x3, No Motor/Sensory Deficits, Normal Mood/Affect Results/Procedures Lab Laboratory Tests 05/26/20 03:33 Patient resulted labs reviewed. Assessment/Plan Assessment and Plan Assess & Plan/Chief Complaint Assessment: Severe alcohol withdrawal Acute alcoholic hepatitis with early liver failure Morbid obesity HTN OOC Plan: [facility] liver function high risk for fulminant liver failure 05/26/20: Monitor closely ETOH withdrawal Diagnosis/Problems Diagnosis/Problems (1) Alcoholic hepatitis (2) Bilirubinemia (3) Bilirubinuria (4) Serum ammonia increased (5) KARINE on CPAP (6) Obesity, morbid, BMI 50 or higher (7) Liver failure (8) Dyspnea MARTITA VELAZQUEZ DO May 26, 2020 11:12
[2020-05-26] MEDS: LORazepam INJ 2 MG/ML (ATIVAN) VIAL IV PRN (14:47)
[2020-05-26] MEDS ORDERED: SIMETHICONE 80 MG (MYLICON) CHEW PO PRN (20:30)
[2020-05-26] MEDS ORDERED: FAMOTIDINE 20 MG (PEPCID) TABLET PO PRN (20:30)
[2020-05-26] MEDS ORDERED: DOXYLAMINE SUCCINATE 25 MG PO SCH (21:00)
[2020-05-27] MEDS: LORazepam 0.5 MG (ATIVAN) TABLET PO SCH ×3 (00:10→06:11)
[2020-05-27 03:03] LABS: BASOPHILS % (AUTO) 0 % (0-10); EOSINOPHILS % (AUTO) 0 % (0-10); HEMATOCRIT 31 % (40-54); HEMOGLOBIN 10.7 g/dL (13.3-17.7); LYMPHOCYTES # (AUTO) 1.1 10^3/uL (1.0-4.0); LYMPHOCYTES % (AUTO) 25 % (12-44); MEAN CORPUSCULAR HEMOGLOBIN 41 pg (25-34); MEAN CORPUSCULAR HGB CONC 35 g/dL (32-36); MEAN CORPUSCULAR VOLUME 117 fL (80-99); MEAN PLATELET VOLUME 11.7 fL (9.0-12.2); MONOCYTES # (AUTO) 0.4 10^3/uL (0.0-1.0); MONOCYTES % (AUTO) 10 % (0-12); NEUTROPHILS # (AUTO) 2.7 10^3/uL (1.8-7.8); NEUTROPHILS % (AUTO) 62 % (42-75); PLATELET COUNT 149 10^3/uL (130-400); WHITE BLOOD COUNT 4.4 10^3/uL (4.3-11.0)
[2020-05-27 03:13] LABS: INR 1.1 (0.8-1.4); PROTHROMBIN TIME PATIENT 14.3 SEC (12.2-14.7)
[2020-05-27 03:23] LABS: ALBUMIN 3.4 GM/DL (3.2-4.5); CREATININE SERUM 1.44 MG/DL (0.60-1.30); POTASSIUM 3.6 MMOL/L (3.6-5.0); TOTAL PROTEIN 6.5 GM/DL (6.4-8.2)
[2020-05-27] MEDS: RT-ALBUTEROL/IPRATROPIUM 3 ML (DUONEB) VIAL INH SCH ×6 (03:50→22:20)
[2020-05-27 03:58] LABS: BILIRUBIN,TOTAL 13.4 MG/DL (0.1-1.0)
[2020-05-27] MEDS ORDERED: cefTRIAXone 1,000 MG IV (ROCEPHIN) VIAL ONE (04:54)
[2020-05-27] MEDS ORDERED: WATER (STERILE) FOR INJECTION 10 ML ONE (04:55)
[2020-05-27] MEDS: cefTRIAXone FOR IV USE 1,000 MG in WATER (STERILE) FOR INJECTION 10 ML IV SCH (05:05)
[2020-05-27] MEDS: inSUlin ASPART (NovoLOG) 1 UNIT/0.01 ML (CHARGE PER UNIT) SC SCH ×4 (05:12→21:05)
[2020-05-27] MEDS: MULTIVIT W/MINERALS TAB (THERAGRAN M) PO SCH (06:10)
[2020-05-27] MEDS: VENlafaxine XR 75 MG (EFFEXOR XR) CAP PO SCH (06:11)
[2020-05-27] MEDS ORDERED: MULTIVIT W/MINERALS TAB (THERAGRAN M) PO SCH (07:00)
[2020-05-27] MEDS: FLUTICASONE/SALMETEROL 232-14 (AIRDUO RespiCLICK) IH SCH ×2 (07:04→18:39)
--- NOTE | 2020-05-27 10:06 | Progress Note ---
JAG[facility]IT [facility] 05/27/20 1006: Subjective Date Seen by a Provider: May 27, 2020 Time Seen by a Provider: 09:00 Subjective/Events-last exam Patient was sitting up in bed and feeling better. at bedside. No acute events overnight. He stated " I feel like I am breathing better". Urinating and having bowel movement without issue. Up and moving around. We spoke to him about his next steps. We spoke in detail about him never drinking alcohol again and he agreed. He denies SOB, chest pain, Abdominal pain, N/V, F/C and any new concerns at this time. Review of Systems General: No Chills HEENT: No Head Aches Pulmonary: No Dyspnea, No Cough Cardiovascular: No: Chest Pain Gastrointestinal: No: Nausea, Vomiting, Abdominal Pain Genitourinary: No Dysuria Objective Exam Last Set of Vital Signs Vital Signs Date Time Temp Pulse Resp B/P (MAP) Pulse Ox O2 Delivery O2 Flow Rate FiO2 05/27/20 07:06 92 Room Air 05/27/20 03:20 36.4 81 20 141/82 (101) Capillary Refill : Less Than 3 Seconds I&O Intake and Output 05/27/20 00:00 Intake Total 2700 ml Balance 2700 ml Intake Oral 2700 ml # Voids 7 # Bowel Movements 2 General: Alert, Oriented X3 Lungs: Clear to Auscultation, Normal Air Movement Heart: Regular Rate, No Murmurs Abdomen: Normal Bowel Sounds, Soft, No Tenderness Results Lab Laboratory Tests 05/26/20 10:31: Glucometer 103 05/26/20 15:23: Glucometer 114H 05/26/20 19:53: Glucometer 92 05/27/20 02:55: White Blood Count 4.4, Red Blood Count 2.62L, Hemoglobin 10.7L, Hematocrit 31L, Mean Corpuscular Volume 117H, Mean Corpuscular Hemoglobin 41H, Mean Corpuscular Hemoglobin Concent 35, Red Cell Distribution Width 21.6H, Platelet Count 149, Mean Platelet Volume 11.7, Immature Granulocyte % (Auto) 2, Neutrophils (%) (Auto) 62, Lymphocytes (%) (Auto) 25, Monocytes (%) (Auto) 10, Eosinophils (%) (Auto) 0, Basophils (%) (Auto) 0, Neutrophils # (Auto) 2.7, Lymphocytes # (Auto) 1.1, Monocytes # (Auto) 0.4, Eosinophils # (Auto) 0.0, Basophils # (Auto) 0.0, Immature Granulocyte # (Auto) 0.1, Prothrombin Time 14.3, INR Comment 1.1, Sodium Level 133L, Potassium Level 3.6, Chloride Level 93L, Carbon Dioxide Level 23, Anion Gap 17H, Blood Urea Nitrogen 26H, Creatinine 1.44H, Estimat Glomerular Filtration Rate 54, BUN/Creatinine Ratio 18, Glucose Level 93, Calcium Level 8.0L, Corrected Calcium 8.5, Total Bilirubin 13.4#*H, Aspartate Amino Transf (AST/SGOT) 194H, Alanine Aminotransferase (ALT/SGPT) 88H, Alkaline Phosphatase 134, Ammonia 60H, Total Protein 6.5, Albumin 3.4 Microbiology 05/24/20 Urine Culture - Final, Complete NO GROWTH 05/23/20 MRSA Screen - Final, Complete MRSA not isolated Assessment/Plan Assessment/Plan Assess & Plan/Chief Complaint Assess & Plan/Chief Complaint Assessment: Severe alcohol withdrawal Acute alcoholic hepatitis with early liver failure Morbid obesity HTN OOC Plan: Transfer to [facility] Ativan Monitor liver function high risk for fulminant liver failure 05/26/20: Monitor closely ETOH withdrawal 05/27 Continue to monitor labs Will begin to titrate ativan Transfer to 4th floor Meeting with elementary school social worker to plan next step in care. MARILYN BOOTH DO 05/28/20 0508: Subjective Subjective/Events-last exam Patient continues to improve Less dyspnea Labs improved ETOH rehab options explored Review of Systems General: Fatigue Pulmonary: Dyspnea Objective Exam General: Alert, Oriented X3, Cooperative, No Acute Distress Heart: Regular Rate Abdomen: Normal Bowel Sounds Neuro: Normal Gait, Normal Speech, Strength at 5/5 X4 Ext, Normal Tone Assessment/Plan Assessment/Plan Assess & Plan/Chief Complaint DC planning Supervisory-Addendum Brief Verification & Attestation Participated in pt care: history, MDM, physical Personally performed: exam, history, MDM, supervision of care Care discussed with: Medical Student Procedures: n/a Results interpretation: Verified all documentation Verification and Attestation of Medical Student E/M Service A medical student performed and documented this service in my presence. I reviewed and verified all information documented by the medical student and made modifications to such information, when appropriate. I personally performed the physical exam and medical decision making. Marilyn Booth, May 28, 2020,05:06 [facility] May 27, 2020 10:06 MARILYN BOOTH DO May 28, 2020 05:08
[2020-05-27] MEDS: ENOXAPARIN 60 MG/0.6 ML (LOVENOX) SYR SC SCH ×2 (10:40→19:33)
[2020-05-27] MEDS: LACTOBACILLUS ACIDOPHILUS (PROBIOTIC) CAPSULE PO SCH (10:40)
[2020-05-27] MEDS: RIFAXIMIN 550 MG TABLET (XIFAXAN) PO SCH ×2 (10:41→19:33)
[2020-05-27] MEDS: amLODIPine 5 MG (NORVASC) TAB PO SCH (10:41)
[2020-05-27] MEDS: FOLIC ACID 1 MG TAB PO SCH (10:41)
[2020-05-27] MEDS: meTOprolol TARTRATE 50 MG (LOPRESSOR) TAB PO SCH ×2 (10:41→19:33)
[2020-05-27] MEDS: LACTULOSE SYRUP 10GM/15ML (ENULOSE) 30ML UDC PO SCH ×3 (10:42→18:12)
[2020-05-27] MEDS: LORazepam 1 MG (ATIVAN) TAB PO SCH ×3 (10:43→23:42)
[2020-05-27] MEDS: hydrALAZINE (APRESOLINE) 25 MG TAB PO SCH ×3 (10:45→19:33)
[2020-05-28] MEDS: RT-ALBUTEROL/IPRATROPIUM 3 ML (DUONEB) VIAL INH SCH ×3 (02:20→10:33)
[2020-05-28] MEDS: guaiFENesin/DM (ROBITUSSIN DM) 10 ML UDC PO PRN (04:59)
[2020-05-28] MEDS: LORazepam 1 MG (ATIVAN) TAB PO SCH (05:53)
[2020-05-28] MEDS: inSUlin ASPART (NovoLOG) 1 UNIT/0.01 ML (CHARGE PER UNIT) SC SCH ×2 (05:53→11:47)
[2020-05-28] MEDS: VENlafaxine XR 75 MG (EFFEXOR XR) CAP PO SCH (05:54)
[2020-05-28] MEDS: MULTIVIT W/MINERALS TAB (THERAGRAN M) PO SCH (05:54)
[2020-05-28 06:13] LABS: BASOPHILS % (AUTO) 0 % (0-10); EOSINOPHILS # (AUTO) 0.1 10^3/uL (0.0-0.3); EOSINOPHILS % (AUTO) 2 % (0-10); HEMATOCRIT 30 % (40-54); HEMOGLOBIN 10.3 g/dL (13.3-17.7); LYMPHOCYTES # (AUTO) 0.6 10^3/uL (1.0-4.0); LYMPHOCYTES % (AUTO) 19 % (12-44); MEAN CORPUSCULAR HEMOGLOBIN 41 pg (25-34); MEAN CORPUSCULAR HGB CONC 35 g/dL (32-36); MEAN CORPUSCULAR VOLUME 117 fL (80-99); MONOCYTES # (AUTO) 0.5 10^3/uL (0.0-1.0); MONOCYTES % (AUTO) 13 % (0-12); NEUTROPHILS # (AUTO) 2.2 10^3/uL (1.8-7.8); NEUTROPHILS % (AUTO) 63 % (42-75); PLATELET COUNT 143 10^3/uL (130-400); WHITE BLOOD COUNT 3.4 10^3/uL (4.3-11.0)
[2020-05-28 06:22] LABS: PROTHROMBIN TIME PATIENT 13.9 SEC (12.2-14.7)
[2020-05-28 06:35] LABS: ALANINE AMINOTRANSFERASE 91 U/L (0-55); ALBUMIN 3.2 GM/DL (3.2-4.5); ALKALINE PHOSPHATASE 112 U/L (40-136); AMMONIA 48 UMOL/L (11-32); BUN/CREATININE RATIO 15; CARBON DIOXIDE 23 MMOL/L (21-32); CHLORIDE 95 MMOL/L (98-107); CREATININE SERUM 1.08 MG/DL (0.60-1.30); GFR ESTIMATED > 60; GLUCOSE 93 MG/DL (70-105); POTASSIUM 3.1 MMOL/L (3.6-5.0); SODIUM 133 MMOL/L (135-145); TOTAL PROTEIN 6.2 GM/DL (6.4-8.2)
[2020-05-28 06:41] LABS: BILIRUBIN,TOTAL 14.7 MG/DL (0.1-1.0)
[2020-05-28] MEDS: FLUTICASONE/SALMETEROL 232-14 (AIRDUO RespiCLICK) IH SCH (06:50)
[2020-05-28] MEDS: ENOXAPARIN 60 MG/0.6 ML (LOVENOX) SYR SC SCH (08:29)
[2020-05-28] MEDS: LACTOBACILLUS ACIDOPHILUS (PROBIOTIC) CAPSULE PO SCH (08:29)
[2020-05-28] MEDS: hydrALAZINE (APRESOLINE) 25 MG TAB PO SCH (08:29)
[2020-05-28] MEDS: LACTULOSE SYRUP 10GM/15ML (ENULOSE) 30ML UDC PO SCH (08:29)
[2020-05-28] MEDS: amLODIPine 5 MG (NORVASC) TAB PO SCH (08:30)
[2020-05-28] MEDS: meTOprolol TARTRATE 50 MG (LOPRESSOR) TAB PO SCH (08:30)
[2020-05-28] MEDS: RIFAXIMIN 550 MG TABLET (XIFAXAN) PO SCH (08:30)
[2020-05-28] MEDS: FOLIC ACID 1 MG TAB PO SCH (08:30)
[2020-05-28] MEDS ORDERED: FUROSEMIDE 40 MG/4 ML INJ (LASIX) IVP ONE (08:45)
[2020-05-28] MEDS ORDERED: KCL 20 MEQ TAB (K-DUR) PO ONE ×2 (08:45→12:00)
[2020-05-28] MEDS ORDERED: AMLO-250 PO (09:44)
[2020-05-28] MEDS ORDERED: LORA-405 PO (09:44)
[2020-05-28] MEDS ORDERED: LACT20SO2 PO (09:44)
[2020-05-28] MEDS ORDERED: FOLI1TAB33 PO (09:44)
[2020-05-28] MEDS ORDERED: THIA100T66 PO (09:44)
--- NOTE | 2020-05-28 09:45 | Discharge Summary ---
Diagnosis/Chief Complaint Date of Admission May 23, 2020 at 18:14 Date of Discharge Discharge Date: May 28, 2020 Discharge Diagnosis Alcoholic hepatitis Hepatic encephalopathy Alcoholism new diagnosis s/p bariatric surgery 2014 HTN Anxiety Discharge Summary Discharge Physical Examination Allergies: Coded Allergies: No Known Drug Allergies (Verified , 05/14/08) Vitals & I&Os Vital Signs Date Time Temp Pulse Resp B/P (MAP) Pulse Ox O2 Delivery O2 Flow Rate FiO2 05/28/20 12:00 36.9 112 18 133/95 94 Room Air General Appearance: Alert, Oriented X3, Cooperative Respiratory: Clear to Auscultation Cardiovascular: Regular Rate Neuro: Normal Gait, Normal Speech, Strength at 5/5 X4 Ext Psych/Mental Status: Mental Status NL Hospital Course Was the Problem List Reviewed?: Yes Hospital Course: Kaushal Muhammad was admitted to [facility] on 05/24/20 and will be discharged today 05/28/20. He was admitted for Alcoholic Hepatitis, Pancytopenia, Hyperbilirubinemia, Elevated Ammonia, Elevated Liver Enzymes with PMH of Asthma/COPD, Anxiety/Depression, Obesity with gastic surgery in 2013. While admitted he was under the care of Internal Medicine Dr. Velazquez and Pulmonary Dr. Matias, PT/OT and social organization professor. He was direct admit from Dr. Powers office. He presented with Icterus and jaundice, Altered Mental status, Weakness, Fatigue and nausea. Labs indicated signs of liver failure. Alcohol level was 218 and initial Ammonia Level was >200. He is pancytopenic with elevations in liver enzymes and billirubin. He received an abdominal US and CXR while admitted. His treatment course included but is not limited to IV abx and fluids, alcohol withdraw protocol, lactulose and continuos lab monitoring. His ammonia levels and liver enzymes have improved. He is not as fatigued and has improved overall. He is tolerating withdraw protocol and no longer has tremors. He is still jaundice but this will take sometime to resolve as discussed with patient. Additional lab values will take time to improve, which was discussed with patient in depth. He will be discharged today in stable condition. He is to follow all followup and medication regimes outlined in the discharge instructions. Alcohol resources and recovery programs were discussed with patient. He was advised to stop all alcohol use. The following information is only a summary of the patients admission while at [facility] and is not all inclusive. Please review entire chart for more information. CORNELJAGJIT SIM STUDGABY May 28, 2020 10:13 <Created by JAGJIT UNGER MED STUDENT> Labs (last 24 hrs) Laboratory Tests 05/23/20 18:14: Lab Scanned Report Referred Lab Report 05/23/20 18:39: White Blood Count 2.7L, Red Blood Count 2.94L, Hemoglobin 11.6L, Hematocrit 33L, Mean Corpuscular Volume 111H, Mean Corpuscular Hemoglobin 40H, Mean Corpuscular Hemoglobin Concent 36, Red Cell Distribution Width 22.2H, Platelet Count 114L, Mean Platelet Volume 10.7, Immature Granulocyte % (Auto) 1, Neutrophils (%) (Auto) 65, Lymphocytes (%) (Auto) 25, Monocytes (%) (Auto) 8, Eosinophils (%) (Auto) 1, Basophils (%) (Auto) 1, Neutrophils # (Auto) 1.8, Lymphocytes # (Auto) 0.7L, Monocytes # (Auto) 0.2, Eosinophils # (Auto) 0.0, Basophils # (Auto) 0.0, Immature Granulocyte # (Auto) 0.0, Prothrombin Time 14.0, INR Comment 1.0, Activated Partial Thromboplast Time 30, Sodium Level 137, Potassium Level 3.7, Chloride Level 95L, Carbon Dioxide Level 24, Anion Gap 18H, Blood Urea Nitrogen 7, Creatinine 1.23, Estimat Glomerular Filtration Rate > 60, BUN/Creatinine Ratio 6, Glucose Level 104, Calcium Level 8.1L, Corrected Calcium 8.3L, Total Bilirubin 8.0H, Aspartate Amino Transf (AST/SGOT) 292H, Alanine Aminotransferase (ALT/SGPT) 102H, Alkaline Phosphatase 148H, Ammonia 64H, Total Protein 7.0, Albumin 3.7, Serum Alcohol 218H, HIV (1&2) Ag and Ab Screen Referral Non-Mayte ctive 05/23/20 23:35: Urine Opiates Screen NEGATIVE, Urine Oxycodone Screen NEGATIVE, Urine Methadone Screen NEGATIVE, Urine Propoxyphene Screen NEGATIVE, Urine Barbiturates Screen NEGATIVE, Ur Tricyclic Antidepressants Screen NEGATIVE, Urine Phencyclidine Screen NEGATIVE, Urine Amphetamines Screen NEGATIVE, Urine Methamphetamines Screen NEGATIVE, Urine Benzodiazepines Screen POSITIVEH, Urine Cocaine Screen NEGATIVE, Urine Cannabinoids Screen POSITIVEH 05/24/20 00:35: Urine Color AMBERH, Urine Clarity CLEAR, Urine pH 6.0, Urine Specific [place] 1.020, Urine Protein 1+H, Urine Glucose (UA) NEGATIVE, Urine Ketones TRACEH, Urine Nitrite POSITIVEH, Urine Bilirubin 3+H, Urine Urobilinogen >=8.0, Urine Leukocyte Esterase NEGATIVE, Urine RBC (Auto) NEGATIVE, Urine RBC NONE, Urine WBC 0-2, Urine Squamous Epithelial Cells 2-5, Urine Crystals PRESENTH, Urine Amorphous Sediment MOD ASIF URATESH, Urine Bacteria FEWH, Urine Casts PRESENT, Urine Hyaline Casts 0-2H, Urine Mucus SMALLH, Urine Culture Indicated YES 05/24/20 02:36: Sodium Level 136, Potassium Level 3.5L, Chloride Level 94L, Carbon Dioxide Level 24, Anion Gap 18H, Blood Urea Nitrogen 8, Creatinine 1.16, Estimat Glomerular Filtration Rate > 60, BUN/Creatinine Ratio 7, Glucose Level 86, Calcium Level 7.9L, Corrected Calcium 8.4L, Phosphorus Level 3.6, Magnesium Level 1.3L, Total Bilirubin 8.1H, Aspartate Amino Transf (AST/SGOT) 269H, Alanine Aminotransferase (ALT/SGPT) 95H, Alkaline Phosphatase 135, Total Protein 6.4, Albumin 3.4, Serum Alcohol 92H 05/24/20 02:45: White Blood Count 2.6L, Red Blood Count 2.73L, Hemoglobin 10.7L, Hematocrit 30L, Mean Corpuscular Volume 111H, Mean Corpuscular Hemoglobin 39H, Mean Corpuscular Hemoglobin Concent 35, Red Cell Distribution Width 21.9H, Platelet Count 96L, Mean Platelet Volume 11.3, Immature Granulocyte % (Auto) 1, Neutrophils (%) (Auto) 61, Lymphocytes (%) (Auto) 28, Monocytes (%) (Auto) 9, Eosinophils (%) ( Auto) 0, Basophils (%) (Auto) 1, Neutrophils # (Auto) 1.6L, Lymphocytes # (Auto) 0.7L, Monocytes # (Auto) 0.2, Eosinophils # (Auto) 0.0, Basophils # (Auto) 0.0, Immature Granulocyte # (Auto) 0.0, Smear Scan YES 05/24/20 15:10: Glucometer 152H 05/24/20 20:19: Glucometer 177H 05/25/20 03:23: White Blood Count 2.8L, Red Blood Count 2.78L, Hemoglobin 11.1L, Hematocrit 31L, Mean Corpuscular Volume 112H, Mean Corpuscular Hemoglobin 40H, Mean Corpuscular Hemoglobin Concent 36, Red Cell Distribution Width 22.5H, Platelet Count 100L, Mean Platelet Volume 11.4, Immature Granulocyte % (Auto) 1, Neutrophils (%) (Auto) 74, Lymphocytes (%) (Auto) 16, Monocytes (%) (Auto) 9, Eosinophils (%) (Auto) 0, Basophils (%) (Auto) 0, Neutrophils # (Auto) 2.1, Lymphocytes # (Auto) 0.5L, Monocytes # (Auto) 0.3, Eosinophils # (Auto) 0.0, Basophils # (Auto) 0.0, Immature Granulocyte # (Auto) 0.0, Prothrombin Time 14.2, INR Comment 1.1, Sodium Level 133L, Potassium Level 3.6, Chloride Level 92L, Carbon Dioxide Level 24, Anion Gap 17H, Blood Urea Nitrogen 11, Creatinine 1.05, Estimat Glomerular Filtration Rate > 60, BUN/Creatinine Ratio 10, Glucose Level 114H, Calcium Level 8.2L, Corrected Calcium 8.4L, Total Bilirubin 11.4*H, Aspartate Amino Transf (AST/SGOT) 199H, Alanine Aminotransferase (ALT/SGPT) 91H, Alkaline Phosphatase 131, Ammonia 46H, Total Protein 6.8, Albumin 3.7 05/25/20 10:48: Glucometer 122H 05/25/20 15:37: Glucometer 135H 05/25/20 21:01: Glucometer 99 05/26/20 03:33: White Blood Count 4.7, Red Blood Count 2.83L, Hemoglobin 11.6L, Hematocrit 33L, Mean Corpuscular Volume 117H, Mean Corpuscular Hemoglobin 41H, Mean Corpuscular Hemoglobin Concent 35, Red Cell Distribution Width 22.1H, Platelet Count 156, Mean Platelet Volume 12.0, Immature Granulocyte % (Auto) 2, Neutrophils (%) (Auto) 77H, Lymphocytes (%) (Auto) 13, Monocytes (%) (Auto) 9, Eosinophils (%) (Auto) 0, Basophils (%) (Auto) 0, Neutrophils # (Auto) 3.6, Lymphocytes # (Auto) 0.6L, Monocytes # (Auto) 0.4, Eosinophils # (Auto) 0.0, Basophils # (Auto) 0.0, Immature Granulocyte # (Auto) 0.1, Sodium Level 134L, Potassium Level 3.8, Chloride Level 92L, Carbon Dioxide Level 22, Anion Gap 20H, Blood Urea Nitrogen 20H, Creatinine 1.80H, Estimat Glomerular Filtration Rate 42, BUN/Creatinine Ratio 11, Glucose Level 91, Calcium Level 9.0, Corrected Calcium 9.1, Total Bilirubin 15.6*H, Aspartate Amino Transf (AST/SGOT) 205H, Alanine Aminotransferase (ALT/SGPT) 93H, Alkaline Phosphatase 128, Total Protein 7.4, Albumin 3.9 05/26/20 07:30: Prothrombin Time 15.0H, INR Comment 1.1, Ammonia 58H 05/26/20 10:31: Glucometer 103 05/26/20 15:23: Glucometer 114H 05/26/20 19:53: Glucometer 92 05/27/20 02:55: White Blood Count 4.4, Red Blood Count 2.62L, Hemoglobin 10.7L, Hematocrit 31L, Mean Corpuscular Volume 117H, Mean Corpuscular Hemoglobin 41H, Mean Corpuscular Hemoglobin Concent 35, Red Cell Distribution Width 21.6H, Platelet Count 149, Mean Platelet Volume 11.7, Immature Granulocyte % (Auto) 2, Neutrophils (%) (Auto) 62, Lymphocytes (%) (Auto) 25, Monocytes (%) (Auto) 10, Eosinophils (%) (Auto) 0, Basophils (%) (Auto) 0, Neutrophils # (Auto) 2.7, Lymphocytes # (Auto) 1.1, Monocytes # (Auto) 0.4, Eosinophils # (Auto) 0.0, Basophils # (Auto) 0.0, Immature Granulocyte # (Auto) 0.1, Prothrombin Time 14.3, INR Comment 1.1, Sodium Level 133L, Potassium Level 3.6, Chloride Level 93L, Carbon Dioxide Level 23, Anion Gap 17H, Blood Urea Nitrogen 26H, Creatinine 1.44H, Estimat Glomerular Filtration Rate 54, BUN/Creatinine Ratio 18, Glucose Level 93, Calcium Level 8.0L, Corrected Calcium 8.5, Total Bilirubin 13.4#*H, Aspartate Amino Transf (AST/SGOT) 194H, Alanine Aminotransferase (ALT/SGPT) 88H, Alkaline Phosphatase 134, Ammonia 60H, Total Protein 6.5, Albumin 3.4 05/27/20 10:45: Glucometer 112H 05/27/20 16:16: Glucometer 101 05/27/20 21:03: Glucometer 101 05/28/20 05:52: Glucometer 94 05/28/20 06:00: White Blood Count 3.4L, Red Blood Count 2.53L, Hemoglobin 10.3L, Hematocrit 30L, Mean Corpuscular Volume 117H, Mean Corpuscular Hemoglobin 41H, Mean Corpuscular Hemoglobin Concent 35, Red Cell Distribution Width 21.1H, Platelet Count 143, Mean Platelet Volume 11.0, Immature Granulocyte % (Auto) 4, Neutrophils (%) (Auto) 63, Lymphocytes (%) (Auto) 19, Monocytes (%) (Auto) 13H, Eosinophils (%) (Auto) 2, Basophils (%) (Auto) 0, Neutrophils # (Auto) 2.2, Lymphocytes # (Auto) 0.6L, Monocytes # (Auto) 0.5, Eosinophils # (Auto) 0.1, Basophils # (Auto) 0.0, Immature Granulocyte # (Auto) 0.1, Prothrombin Time 13.9, INR Comment 1.0, Sodium Level 133L, Potassium Level 3.1L, Chloride Level 95L, Carbon Dioxide Level 23, Anion Gap 15H, Blood Urea Nitrogen 16, Creatinine 1.08, Estimat Glomerular Filtration Rate > 60, BUN/Creatinine Ratio 15, Glucose Level 93, Calcium Level 8.0L, Corrected Calcium 8.6, Total Bilirubin 14.7*H, Aspartate Amino Transf (AST/SGOT) 177H, Alanine Aminotransferase (ALT/SGPT) 91H, Alkaline Phosphatase 112, Ammonia 48H, Total Protein 6.2L, Albumin 3.2 05/28/20 11:33: Glucometer 97 Microbiology 05/24/20 Urine Culture - Final, Complete NO GROWTH 05/23/20 MRSA Screen - Final, Complete MRSA not isolated Pending Labs Microbiology Date/Time Source Procedure Growth Status 05/24/20 00:35 Urine Clean Catch Urine Culture - Final NO GROWTH Complete 05/23/20 18:40 Nasal MRSA Screen - Final MRSA not isolated Complete Laboratory Tests 05/23/20 18:14: Lab Scanned Report Referred Lab Report 05/23/20 18:39: White Blood Count 2.7, Red Blood Count 2.94, Hemoglobin 11.6, Hematocrit 33, Mean Corpuscular Volume 111, Mean Corpuscular Hemoglobin 40, Mean Corpuscular Hemoglobin Concent 36, Red Cell Distribution Width 22.2, Platelet Count 114, Mean Platelet Volume 10.7, Immature Granulocyte % (Auto) 1, Neutrophils (%) (Auto) 65, Lymphocytes (%) (Auto) 25, Monocytes (%) (Auto) 8, Eosinophils (%) (Auto) 1, Basophils (%) (Auto) 1, Neutrophils # (Auto) 1.8, Lymphocytes # (Auto) 0.7, Monocytes # (Auto) 0.2, Eosinophils # (Auto) 0.0, Basophils # (Auto) 0.0, Immature Granulocyte # (Auto) 0.0, Prothrombin Time 14.0, INR Comment 1.0, Activated Partial Thromboplast Time 30, Sodium Level 137, Potassium Level 3.7, Chloride Level 95, Carbon Dioxide Level 24, Anion Gap 18, Blood Urea Nitrogen 7, Creatinine 1.23, Estimat Glomerular Filtration Rate > 60, BUN/Creatinine Ratio 6, Glucose Level 104, Calcium Level 8.1, Corrected Calcium 8.3, Total Bilirubin 8.0, Aspartate Amino Transf (AST/SGOT) 292, Alanine Aminotransferase (ALT/SGPT) 102, Alkaline Phosphatase 148, Ammonia 64, Total Protein 7.0, Albumin 3.7, Serum Alcohol 218, HIV (1&2) Ag and Ab Screen Referral Non-Reactive 05/23/20 23:35: Urine Opiates Screen NEGATIVE, Urine Oxycodone Screen NEGATIVE, Urine Methadone Screen NEGATIVE, Urine Propoxyphene Screen NEGATIVE, Urine Barbiturates Screen NEGATIVE, Ur Tricyclic Antidepressants Screen NEGATIVE, Urine Phencyclidine Screen NEGATIVE, Urine Amphetamines Screen NEGATIVE, Urine Methamphetamines Screen NEGATIVE, Urine Benzodiazepines Screen POSITIVE, Urine Cocaine Screen NEGATIVE, Urine Cannabinoids Screen POSITIVE 05/24/20 00:35: Urine Color ROSALBA, Urine Clarity CLEAR, Urine pH 6.0, Urine Specific [place] 1.020, Urine Protein 1+, Urine Glucose (UA) NEGATIVE, Urine Ketones TRACE, Urine Nitrite POSITIVE, Urine Bilirubin 3+, Urine Urobilinogen >=8.0, Urine Leukocyte Esterase NEGATIVE, Urine RBC (Auto) NEGATIVE, Urine RBC NONE, Urine WBC 0-2, Urine Squamous Epithelial Cells 2-5, Urine Crystals PRESENT, Urine Amorphous Sediment MOD ASIF URATES, Urine Bacteria FEW, Urine Casts PRESENT, Urine Hyaline Casts 0-2, Urine Mucus SMALL, Urine Culture Indicated YES 05/24/20 02:36: Sodium Level 136, Potassium Level 3.5, Chloride Level 94, Carbon Dioxide Level 24, Anion Gap 18, Blood Urea Nitrogen 8, Creatinine 1.16, Estimat Glomerular Filtration Rate > 60, BUN/Creatinine Ratio 7, Glucose Level 86, Calcium Level 7.9, Corrected Calcium 8.4, Phosphorus Level 3.6, Magnesium Level 1.3, Total Bilirubin 8.1, Aspartate Amino Transf (AST/SGOT) 269, Alanine Aminotransferase (ALT/SGPT) 95, Alkaline Phosphatase 135, Total Protein 6.4, Albumin 3.4, Serum Alcohol 92 05/24/20 02:45: White Blood Count 2.6, Red Blood Count 2.73, Hemoglobin 10.7, Hematocrit 30, Mean Corpuscular Volume 111, Mean Corpuscular Hemoglobin 39, Mean Corpuscular Hemoglobin Concent 35, Red Cell Distribution Width 21.9, Platelet Count 96, Mean Platelet Volume 11.3, Immature Granulocyte % (Auto) 1, Neutrophils (%) (Auto) 61, Lymphocytes (%) (Auto) 28, Monocytes (%) (Auto) 9, Eosinophils (%) (Auto) 0, Basophils (%) (Auto) 1, Neutrophils # (Auto) 1.6, Lymphocytes # (Auto) 0.7, Monocytes # (Auto) 0.2, Eosinophils # (Auto) 0.0, Basophils # (Auto) 0.0, Immature Granulocyte # (Auto) 0.0, Smear Scan YES 05/24/20 15:10: Glucometer 152 05/24/20 20:19: Glucometer 177 05/25/20 03:23: White Blood Count 2.8, Red Blood Count 2.78, Hemoglobin 11.1, Hematocrit 31, Mean Corpuscular Volume 112, Mean Corpuscular Hemoglobin 40, Mean Corpuscular Hemoglobin Concent 36, Red Cell Distribution Width 22.5, Platelet Count 100, Mean Platelet Volume 11.4, Immature Granulocyte % (Auto) 1, Neutrophils (%) (Auto) 74, Lymphocytes (%) (Auto) 16, Monocytes (%) (Auto) 9, Eosinophils (%) (Auto) 0, Basophils (%) (Auto) 0, Neutrophils # (Auto) 2.1, Lymphocytes # (Auto) 0.5, Monocytes # (Auto) 0.3, Eosinophils # (Auto) 0.0, Basophils # (Auto) 0.0, Immature Granulocyte # (Auto) 0.0, Prothrombin Time 14.2, INR Comment 1.1, Sodium Level 133, Potassium Level 3.6, Chloride Level 92, Carbon Dioxide Level 24, Anion Gap 17, Blood Urea Nitrogen 11, Creatinine 1.05, Estimat Glomerular F iltration Rate > 60, BUN/Creatinine Ratio 10, Glucose Level 114, Calcium Level 8.2, Corrected Calcium 8.4, Total Bilirubin 11.4, Aspartate Amino Transf (AST/SGOT) 199, Alanine Aminotransferase (ALT/SGPT) 91, Alkaline Phosphatase 131, Ammonia 46, Total Protein 6.8, Albumin 3.7 05/25/20 10:48: Glucometer 122 05/25/20 15:37: Glucometer 135 05/25/20 21:01: Glucometer 99 05/26/20 03:33: White Blood Count 4.7, Red Blood Count 2.83, Hemoglobin 11.6, Hematocrit 33, Mean Corpuscular Volume 117, Mean Corpuscular Hemoglobin 41, Mean Corpuscular Hemoglobin Concent 35, Red Cell Distribution Width 22.1, Platelet Count 156, Mean Platelet Volume 12.0, Immature Granulocyte % (Auto) 2, Neutrophils (%) (Auto) 77, Lymphocytes (%) (Auto) 13, Monocytes (%) (Auto) 9, Eosinophils (%) (Auto) 0, Basophils (%) (Auto) 0, Neutrophils # (Auto) 3.6, Lymphocytes # (Auto) 0.6, Monocytes # (Auto) 0.4, Eosinophils # (Auto) 0.0, Basophils # (Auto) 0.0, Immature Granulocyte # (Auto) 0.1, Sodium Level 134, Potassium Level 3.8, Chloride Level 92, Carbon Dioxide Level 22, Anion Gap 20, Blood Urea Nitrogen 20, Creatinine 1.80, Estimat Glomerular Filtration Rate 42, BUN/Creatinine Ratio 11, Glucose Level 91, Calcium Level 9.0, Corrected Calcium 9.1, Total Bilirubin 15.6, Aspartate Amino Transf (AST/SGOT) 205, Alanine Aminotransferase (ALT/SGPT) 93, Alkaline Phosphatase 128, Total Protein 7.4, Albumin 3.9 05/26/20 07:30: Prothrombin Time 15.0, INR Comment 1.1, Ammonia 58 05/26/20 10:31: Glucometer 103 05/26/20 15:23: Glucometer 114 05/26/20 19:53: Glucometer 92 05/27/20 02:55: White Blood Count 4.4, Red Blood Count 2.62, Hemoglobin 10.7, Hematocrit 31, Mean Corpuscular Volume 117, Mean Corpuscular Hemoglobin 41, Mean Corpuscular Hemoglobin Concent 35, Red Cell Distribution Width 21.6, Platelet Count 149, Mean Platelet Volume 11.7, Immature Granulocyte % (Auto) 2, Neutrophils (%) (Auto) 62, Lymphocytes (%) (Auto) 25, Monocytes (%) (Auto) 10, Eosinophils (%) (Auto) 0, Basophils (%) (Auto) 0, Neutrophils # (Auto) 2.7, Lymphocytes # (Auto) 1.1, Monocytes # (Auto) 0.4, Eosinophils # (Auto) 0.0, Basophils # (Auto) 0.0, Immature Granulocyte # (Auto) 0.1, Prothrombin Time 14.3, INR Comment 1.1, Sodium Level 133, Potassium Level 3.6, Chloride Level 93, Carbon Dioxide Level 23, Anion Gap 17, Blood Urea Nitrogen 26, Creatinine 1.44, Estimat Glomerular Filtration Rate 54, BUN/Creatinine Ratio 18, Glucose Level 93, Calcium Level 8.0, Corrected Calcium 8.5, Total Bilirubin 13.4, Aspartate Amino Transf (AST/SGOT) 194, Alanine Aminotransferase (ALT/SGPT) 88, Alkaline Phosphatase 134, Ammonia 60, Total Protein 6.5, Albumin 3.4 05/27/20 10:45: Glucometer 112 05/27/20 16:16: Glucometer 101 05/27/20 21:03: Glucometer 101 05/28/20 05:52: Glucometer 94 05/28/20 06:00: White Blood Count 3.4, Red Blood Count 2.53, Hemoglobin 10.3, Hematocrit 30, Mean Corpuscular Volume 117, Mean Corpuscular Hemoglobin 41, Mean Corpuscular Hemoglobin Concent 35, Red Cell Distribution Width 21.1, Platelet Count 143, Mean Platelet Volume 11.0, Immature Granulocyte % (Auto) 4, Neutrophils (%) (Auto) 63, Lymphocytes (%) (Auto) 19, Monocytes (%) (Auto) 13, Eosinophils (%) (Auto) 2, Basophils (%) (Auto) 0, Neutrophils # (Auto) 2.2, Lymphocytes # (Auto) 0.6, Monocytes # (Auto) 0.5, Eosinophils # (Auto) 0.1, Basophils # (Auto) 0.0, Immature Granulocyte # (Auto) 0.1, Prothrombin Time 13.9, INR Comment 1.0, Sodium Level 133, Potassium Level 3.1, Chloride Level 95, Carbon Dioxide Level 23, Anion Gap 15, Blood Urea Nitrogen 16, Creatinine 1.08, Estimat Glomerular Filtration Rate > 60, BUN/Creatinine Ratio 15, Glucose Level 93, Calcium Level 8.0, Corrected Calcium 8.6, Total Bilirubin 14.7, Aspartate Amino Transf (AST/SGOT) 177, Alanine Aminotransferase (ALT/SGPT) 91, Alkaline Phosphatase 112, Ammonia 48, Total Protein 6.2, Albumin 3.2 05/28/20 11:33: Glucometer 97 Discharge Home Medications: Active Scripts Active Ativan (Lorazepam) 1 Mg Tablet 1 Mg PO Q2H PRN B-1 (Thiamine HCl) 100 Mg Tablet 100 Mg PO DAILY Folic Acid 1 Mg Tablet 1 Mg PO DAILY Lactulose 20 Gm/30 Ml Solution 10 Gm PO BID Amlodipine Besylate 5 Mg Tablet 5 Mg PO DAILY Reported Advair Hfa 115-21 Mcg Inhaler (Fluticasone/Salmeterol) 12 Gm Hfa.aer.ad 2 Puff IH BID Hydralazine HCl 25 Mg Tablet 25 Mg PO TID Proventil Hfa (Albuterol Sulfate) 6.7 Gm Hfa.aer.ad 2 Puff INH Q4H PRN Metoprolol Succinate 50 Mg Tab.er.24h 50 Mg PO BID Iprat-Albut 0.5-3(2.5) mg/3 ml (Ipratropium/Albuterol Sulfate) 3 Ml Ampul.neb 3 Ml NEB Q4H PRN Furosemide 40 Mg Tablet 40 Mg PO Q72H Probiotic (Lactobacillus Combination No.4) 1 Each Capsule 1 Each PO DAILY Men's Multivitamin Tablet (Multivit-Min/Folic/Vit K/Lycop) 1 Each Tablet 1 Each PO DAILY Unisom Sleep Aid (Doxylamine Succinate) 25 Mg Tablet 25 Mg PO HS Gas-X (Simethicone) 125 Mg Capsule 125 Mg PO PRN PRN Pepcid AC (Famotidine) 10 Mg Tablet 10 Mg PO DAILY PRN Propranolol HCl 10 Mg Tablet 10 Mg PO DAILY PRN Diazepam 5 Mg Tablet 5 Mg PO DAILY PRN Desvenlafaxine Succinate ER (Desvenlafaxine Succinate) 100 Mg Tab.er.24h 100 Mg PO DAILY Instructions to patient/family Please see electronic discharge instructions given to patient. Diagnosis/Problems Diagnosis/Problems (1) Alcoholic hepatitis (2) Bilirubinemia (3) Bilirubinuria (4) Serum ammonia increased (5) KARINE on CPAP (6) Obesity, morbid, BMI 50 or higher (7) Liver failure (8) Dyspnea MARTITA VELAZQUEZ DO May 28, 2020 09:45
--- NOTE | 2020-05-28 10:13 | Progress Note ---
CORNELJAGJIT [email or web address] [facility] 05/28/20 1013: Progress Note Hospital Course: Kaushal Muhammad was admitted to [facility] on 05/24/20 and will be discharged today 05/28/20. He was admitted for Alcoholic Hepatitis, Pancytopenia, Hyperbilirubinemia, Elevated Ammonia, Elevated Liver Enzymes with PMH of Asthma/COPD, Anxiety/Depression, Obesity with gastic surgery in 2013. While admitted he was under the care of Internal Medicine Dr. Velazquez and Pulmonary Dr. Matias, PT/OT and social media coordinator. He was direct admit from Dr. Powers office. He presented with Icterus and jaundice, Altered Mental status, Weakness, Fatigue and nausea. Labs indicated signs of liver failure. Alcohol level was 218 and initial Ammonia Level was >200. He is pancytopenic with elevations in liver enzymes and billirubin. He received an abdominal US and CXR while admitted. His treatment course included but is not limited to IV abx and fluids, alcohol withdraw protocol, lactulose and continuos lab monitoring. His ammonia levels and liver enzymes have improved. He is not as fatigued and has improved overall. He is tolerating withdraw protocol and no longer has tremors. He is still jaundice but this will take sometime to resolve as discussed with patient. Additional lab values will take time to improve, which was discussed with patient in depth. He will be discharged today in stable condition. He is to follow all followup and medication regimes outlined in the discharge instructions. Alcohol resources and recovery programs were discussed with patient. He was advised to stop all alcohol use. The following information is only a summary of the patients admission while at [facility] and is not all inclusive. Please review entire chart for more information. MARILYN VELAZQUEZ DO 05/29/20 0523: Supervisory-Addendum Brief Verification & Attestation Participated in pt care: history, MDM, physical Personally performed: exam, history, MDM, supervision of care Care discussed with: Medical Student Procedures: n/a Results interpretation: Verified all documentation Verification and Attestation of Medical Student E/M Service A medical student performed and documented this service in my presence. I reviewed and verified all information documented by the medical student and made modifications to such information, when appropriate. I personally performed the physical exam and medical decision making. Marilyn Velazquez, May 29, 2020,05:23 JAGJIT UNGER MED STUD May 28, 2020 10:13 MARILYN VELAZQUEZ DO May 29, 2020 05:23
[2020-05-28 12:00] VITALS: BP 133/95
== END 2020-05-28 12:00 | disposition home or self-care (01) | DRG 433 ==
LOC: ICU 18:14 → CSD 05-25 11:26 → 4TH 05-27 13:45
PROVIDERS: ADMIT Internal Medicine; ATTEND Internal Medicine
DX: K70.10 Alcoholic hepatitis without ascites (principal); F10.239 Alcohol dependence with withdrawal, unspecified; Z68.43 Body mass index [BMI] 50.0-59.9, adult; J44.1 Chronic obstructive pulmonary disease with (acute) exacerbation; D61.818 Other pancytopenia; K70.40 Alcoholic hepatic failure without coma; F10.229 Alcohol dependence with intoxication, unspecified; Y90.7 Blood alcohol level of 200-239 mg/100 ml; E66.01 Morbid (severe) obesity due to excess calories; I10 Essential (primary) hypertension; F32.9 Major depressive disorder, single episode, unspecified; F41.9 Anxiety disorder, unspecified; F12.20 Cannabis dependence, uncomplicated; K70.30 Alcoholic cirrhosis of liver without ascites; E78.00 Pure hypercholesterolemia, unspecified; G47.30 Sleep apnea, unspecified; M54.9 Dorsalgia, unspecified; Z98.84 Bariatric surgery status; Z79.2 Long term (current) use of antibiotics
CPT/HCPCS: 36415; 71045; 76705; 80053; 80306; 80320; 81000; 82140; 82962; 83735; 84100; 85025; 85610; 85730; 86703; 87081; 87088; 94640; 94760